=== PATIENT | male | born 1960 | race Hispanic/Latino ===

== ENCOUNTER 2019-09-11 12:14 | Inpatient (IN) | payer BC ==
[~2019-09-11] VITALS: Ht 180.3 cm; Wt 85.8 kg
[2019-09-11] MEDS: SODIUM CHLORIDE 0.9% 1000ML 1,000 ML IV SCH ×2 (02:15→17:03)
--- OUTSIDE RECORDS SUMMARY | 2019-09-11 12:17 | XMS REPORT ---
Author Author [facility] Address Unknown Phone Unavailable Care Team Providers Care Pecan Mallow Dipper Name Role Phone JONO TELLEZ Unavailable Unavailable Problems This patient has no known problems. Allergies, Adverse Reactions, Alerts This patient has no known allergies or adverse reactions. Medications This patient has no known medications. Results Test Description Test Time Test Comments Text Results Atomic Results Result Comments NV, ANGIOGRAM, CEREBRAL 2018-08-24 10:27:00 Reason for Exam:->tia FINAL REPORT DATE OF PROCEDURE: 08/20/2018 SURGEON: Ben Tellez MD MARKETING EXECUTIVE: Jose J Walsh MD PREOPERATIVE DIAGNOSIS: Intracranial artery stenosis POST OPERATIVE DIAGNOSIS: Intracranial artery stenosis PROCEDURE: Cerebral angiogram, 3D rotational angiogram ANESTHESIA: MAC ESTIMATED BLOOD LOSS: Minimal COMPLICATIONS: None INDICATIONS: The patient is a 58 year old male who was found to have stenoses of the left middle cerebral artery branches during a work-up for transient ischemic attacks. He was then indicated for a diagnostic cerebral angiogram to characterize these pathologies. PROCEDURE: Following explanation of the benefits, risks and alternatives for the procedure, informed consent was obtained from the patient. The risks including but not limited to stroke, intra cranial hemorrhage, vascular injury to the cervical or femoral vessels and groin hematoma were discussed with the patient. A time-out was performed. Both groins were prepped in the usual sterile fashion using Chloraprep, and sterilely draped. The skin over the right femoral artery was anesthetized with 1% lidocaine. A single wall puncture of the right femoral artery was performed using a micropuncture set and dilator and a 5-Fr short sheath was inserted into the right common femoral artery and maintained on heparinized flush. Using coaxial technique, a 5-Fr Angled glide catheter was advanced into the descending aorta, back-bled, and flushed in the usual fashion. Using coaxial technique, the catheter was advanced into the aortic arch, and with the aid of the roadmapping, digital fluoroscopy, and careful guidewire manipulation the right vertebral, right common carotid, left common carotid, and left vertebral arteries were catheterized. Upon each successive selective catheterization, digital subtract ion angiography using the appropriate rate and volume of contrast in multiple projections was performed. While in the right common carotid artery, a rotational 3D angiogram was performed with reconstruction and interpretation performed at an outside workstation by the attending physician Dr. Ben Tellez. The catheter was removed. The femoral sheath was removed over a wire and hemostasis was achieved with AngioSeal. The patient tolerated the procedure well and was taken to recovery in stable condition. FINDINGS: RIGHT COMMON FEMORAL ARTERY (DSA - PA, LATERAL - PELVIS) The sheath enters above the femoral bifurcation. The femoral artery and bifurcation are widely patent without evidence of ulceration or stenosis. RIGHT COMMON CAROTID ARTERY (DSA - PA, LATERAL - CERVICAL) There is mild stenosis of the right internal carotid artery near its origin by a non-ulcerated atherosclerotic plaque. The origins of the right external carotid artery is widely patent without evidence of ulceration or stenosis. RIGHT COMMON CAROTID ARTERY (DSA - PA, LATERAL, OBLIQUE - HEAD) There is a small size posterior communicating artery. There is robust spontaneous crossfilling across the anterior communicating artery with opacification of the distal left anterior cerebral artery territories. No vascular malformation or arteriovenous shunting is noted. No stenosis or vasospasm is observed. No significant abnormalities are seen in the capillary and venous phases. The visualized portions of the external carotid artery and its branches are normal without evidence of ulceration or stenosis. There is no evidence of arterioven ous shunting. RIGHT SUBCLAVIAN ARTERY (DSA - PA, LATERAL - CERVICAL) There is 67% stenosis of the right vertebral artery at its origin. RIGHT VERTEBRAL ARTERY (DSA - PA, LATERAL - HEAD) There is 90% stenosis of the basilar artery near the vertebrobasilar junction. There is backfilling of the left posterior inferior cerebellar artery via collaterals. The right vertebral artery is patent without significant stenotic lesion. No aneurysms or vascular malformations are noted in the vertebrobasilar system. The venous phase shows patent bilateral transverse and sigmoid sinuses. LEFT COMMON CAROTID ARTERY (DSA - PA, LATERAL - CERVICAL) The origins of the left internal and external carotid arteries are widely patent without evidence of ulceration or stenosis. LEFT COMMON CAROTID ARTERY (DSA - PA, LATERAL, OBLIQUE - HEAD) The stenoses of left M1 and M2 branches noted on prior CTA on 1/18/19 are not visualized on this injection. There is spontaneous crossfilling across the anterior communicating artery with trace opacification of the distal right anterior cerebral artery territories. There is a small size posterior communicating artery. No vascular malformations, stenosis, or vasospasm is observed. No significant abnormalities are seen in the capillary and venous phases. The venous phase demonstrates patent transverse and sigmoid sinuses. The visualized portions of the external carotid artery and its branches are normal without evidence of ulceration or stenosis. There is no evidence of arteriovenous shunting. The venous phase is normal. LEFT SUBCLAVIAN ARTERY (DSA - PA, LATERAL - CERVICAL) The left vertebral artery is greatly diminished in caliber and course. LEFT VERTEBRAL ARTERY (DSA - PA, LATERAL - HEAD) The left vertebral artery is narrow in caliber and diminished in course. There is no raissa ling of left posterior inferior cerebellar artery branches from this injection. SUPERVISION AND INTERPRETATION: Angiographic study demonstrates: 1. 90% stenosis of the proximal basilar artery 2. 67% stenosis of the right vertebral artery at its origin No immediate technical or clinical complications. Signed: Ben Tellez MDReport Verified Date/Time: 08/24/2018 10:27:15 Reading Location: [facility] Y026 Neuro Angio Reading Room C METABOLIC PANEL 2018-08-20 09:09:00 SODIUM (BEAKER) (test rbdc=903) 140 meq/L 136-145 POTASSIUM (BEAKER) (test xosg=098) 4.5 meq/L 3.5-5.1 CHLORIDE (BEAKER) (test fgmb=334) 106 meq/L 98-107 CO2 (BEAKER) (test ybgt=768) 27 meq/L 22-29 BLOOD UREA NITROGEN (BEAKER) (test uecq=951) 17 mg/dL 7-21 CREATININE (BEAKER) (test vcat=518) 0.97 mg/dL 0.57-1.25 GLUCOSE RANDOM (BEAKER) (test rjcu=911) 109 mg/dL 70-105 CALCIUM (BEAKER) (test wxsi=208) 9.5 mg/dL 8.4-10.2 EGFR (BEAKER) (test dmfn=4729) mL/min/1.73 sq m INSUFFICIENT CLINICAL DATA TO CALCULATE ESTIMATED GFR. PT/[id number] 08:59:00* Test Item Value Reference Range Comments PROTIME (BEAKER) (test krin=566) 13.1 seconds 11.7-14.7 INR (BEAKER) (test vzar=827) 1.0 <=5.9 PARTIAL THROMBOPLASTIN TIME (BEAKER) (test kvfc=838) 31.0 seconds 22.5-36.0 RECOMMENDED COUMADIN/WARFARIN INR THERAPY RANGESSTANDARD DOSE: 2.0 - 3.0 Inclu berto: PROPHYLAXIS for venous thrombosis, systemic embolization; TREATMENT for joi ous thrombosis and/or pulmonary embolus.HIGH RISK: Target INR is 2.5-3.5 for pat ients with mechanical heart valves.CBC W/PLT COUNT & AUTO [id number] 08:36:00* Test Item Value Reference Range Comments WHITE BLOOD CELL COUNT (BEAKER) (test pptv=757) 6.4 K/ L 3.5-10.5 RED BLOOD CELL COUNT (BEAKER) (test zevi=014) 4.71 M/ L 4.63-6.08 HEMOGLOBIN (BEAKER) (test nunw=580) 12.7 GM/DL 13.7-17.5 HEMATOCRIT (BEAKER) (test rtis=429) 39.8 % 40.1-51.0 MEAN CORPUSCULAR VOLUME (BEAKER) (test nvri=100) 84.5 fL 79.0-92.2 MEAN CORPUSCULAR HEMOGLOBIN (BEAKER) (test ovfr=974) 27.0 pg 25.7-32.2 MEAN CORPUSCULAR HEMOGLOBIN CONC (BEAKER) (test ypcv=592) 31.9 GM/DL 32.3-36.5 RED CELL DISTRIBUTION WIDTH (BEAKER) (test ccrf=767) 13.0 % 11.6-14.4 PLATELET COUNT (BEAKER) (test wzpz=482) 206 K/CU MM 150-450 MEAN PLATELET VOLUME (BEAKER) (test ddhe=269) 10.6 fL 9.4-12.4 NUCLEATED RED BLOOD CELLS (BEAKER) (test rjoy=935) 0 /100 WBC 0-0 NEUTROPHILS RELATIVE PERCENT (BEAKER) (test iznj=731) 66 % LYMPHOCYTES RELATIVE PERCENT (BEAKER) (test asub=288) 24 % MONOCYTES RELATIVE PERCENT (BEAKER) (test lrkp=121) 7 % EOSINOPHILS RELATIVE PERCENT (BEAKER) (test wamp=217) 2 % BASOPHILS RELATIVE PERCENT (BEAKER) (test wsio=654) 0 % NEUTROPHILS ABSOLUTE COUNT (BEAKER) (test qpcg=716) 4.27 K/ L 1.78-5.38 LYMPHOCYTES ABSOLUTE COUNT (BEAKER) (test moqv=174) 1.56 K/ L 1.32-3.57 MONOCYTES ABSOLUTE COUNT (BEAKER) (test xrbg=414) 0.45 K/ L 0.30-0.82 EOSINOPHILS ABSOLUTE COUNT (BEAKER) (test swki=085) 0.12 K/ L 0.04-0.54 BASOPHILS ABSOLUTE COUNT (BEAKER) (test hebo=311) 0.01 K/ L 0.01-0.08 IMMATURE GRANULOCYTES-RELATIVE PERCENT (BEAKER) (test bcth=5915) 0 % 0-1
[2019-09-11] MEDS ORDERED: SODIUM CHLORIDE 0.9% 1000ML 1,000 ML IV STA (13:03)
[2019-09-11 13:15] LABS: BASOPHILS % 0.2 % (0.0-1.0); HEMATOCRIT 34.3 % (38.2-49.6); LYMPHOCYTES # (AUTO) 0.3 (1.0-3.2); LYMPHOCYTES % 2.5 % (18.0-39.1); MEAN CORPUSCULAR HEMOGLOBIN 20.6 pg (28-32); MEAN CORPUSCULAR HGB CONC 29.2 g/dL (31-35); MEAN CORPUSCULAR VOLUME 70.6 fL (81-99); MONOCYTES # (AUTO) 0.5 (0.2-0.8); MONOCYTES % 3.9 % (4.4-11.3); NEUTROPHILS # (AUTO) 12.2 (2.1-6.9); NEUTROPHILS % 92.9 % (38.7-80.0); PLATELET COUNT 323 x10e3/uL (140-360); RED BLOOD COUNT 4.86 x10e6/uL (4.3-5.7); RED CELL DISTRIBUTION WIDTH 17.9 % (11.7-14.4)
[2019-09-11] MEDS ORDERED: KETOROLAC TROMETHAMINE 30 MG/ML VIAL IV NR (13:15)
[2019-09-11] MEDS ORDERED: ONDANSETRON HCL INJ 2MG/ML 2ML 2 MG/ML VIAL IV NR (13:15)
[2019-09-11 13:19] LABS: INR 1.01; PROTHROMBIN TIME 13.9 seconds (11.9-14.5)
[2019-09-11 13:20] LABS: PARTIAL THROMBOPLASTIN TIME 25.3 seconds (23.8-35.5)
[2019-09-11 13:27] LABS: ALANINE AMINOTRANSFERASE 26 IU/L (0-55); ALBUMIN 3.5 g/dL (3.5-5.0); ALBUMIN/GLOBULIN RATIO 1.2 (0.8-2.0); ALKALINE PHOSPHATASE 126 IU/L (40-150); ANION GAP 12.1 mmol/L (8-16); BLOOD UREA NITROGEN 19 mg/dL (7-26); BUN/CREATININE RATIO 19 (6-25); CALCIUM 8.8 mg/dL (8.4-10.2); CARBON DIOXIDE 23 mmol/L (22-29); CHLORIDE 103 mmol/L (98-107); CREATINE KINASE 54 IU/L (30-200); EST GLOMERULAR FILTRATION RATE > 60 ML/MIN (60-); GLUCOSE 145 mg/dL (74-118); LIPASE 9 U/L (8-78); POTASSIUM 4.1 mmol/L (3.5-5.1); SODIUM 134 mmol/L (136-145)
--- NOTE | 2019-09-11 14:24 | Diagnostic Imaging Report ---
EXAMINATION: CHEST SINGLE (PORTABLE) COMPARISON: None INDICATION: Right side abdominal pain ^ERMD ORDER ^[id number] ^1405 ^Y DISCUSSION: Frontal view of the chest obtained at 1356 hours. HEART AND MEDIASTINUM: The cardiomediastinal silhouette is unremarkable. LINES: None. LUNGS: The lungs are well inflated and clear. No pneumonia or pulmonary edema. PLEURA: No pleural effusion or pneumothorax. BONES AND SOFT TISSUES: No focal osseous lesion. The soft tissues are normal. IMPRESSION: No acute cardiopulmonary disease. Signed by: Dr. Flor Carr MD on 09/11/2019 2:22 PM
--- NOTE | 2019-09-11 14:33 | Diagnostic Imaging Report ---
CT Abdomen And Pelvis with Intravenous Contrast INDICATION: Right lower quadrant pain ^abd pain ^[id number] ^1400 TECHNIQUE: Thin collimation axial images obtained from the diaphragm to the level of the pubic symphysis following the uneventful administration of 100 cc of low osmolar, nonionic intravenous contrast. Dose reduction techniques used: Automated exposure control, adjustment of the mAs and/or kVp according to patient size, standardized low-dose protocol, and/or iterative reconstruction technique. RADIATION DOSE: Total DLP: 511.68 mGy*cm Estimated effective dose: (DLP x 0.015 x size factor) mSv CTDIvol has been reviewed. It is below the limits set by the Radiation Protocol Committee (RPC). COMPARISON: None. ABDOMEN FINDINGS: Lung Bases: Clear. The visualized portions of the mediastinum are normal.. Liver: Multiple solid low attenuating masses throughout the parenchyma, the largest is in the right lobe and measures 4.5 x 4.3 cm. Gallbladder: Present and appears normal. No biliary ductal dilatation. Pancreas: Mild fatty atrophy. No mass or ductal dilatation. Spleen: Normal in size. No evidence of mass. Adrenal Glands: No evidence for mass. Kidneys: Right: Normal enhancement. No soft tissue mass. No hydronephrosis. Left: Normal enhancement. No soft tissue mass. No hydronephrosis. Lymph Nodes: No enlarged abdominal or periaortic lymph nodes. Aorta: Normal in diameter with scattered calcifications PELVIS FINDINGS: Bowel: Stomach: Normal. Small Bowel: Normal in caliber with normal wall thickness. Large Bowel/appendix: Circumferential tumor in the cecal base extends for approximately 5.5 cm. This obscures the appendiceal orifice. As result, the appendix measures 2.4 cm in diameter with periappendiceal inflammation. The terminal ileum is not dilated. There are multiple enlarged pericecal lymph nodes, that measure up to 2.5 cm. The remainder of the large bowel contains air. There are diverticula in the sigmoid colon with mural thickening suggestive of previous bouts of diverticulitis. Bladder: Normal. Lymph nodes: No enlarged pelvic sidewall or internal lymph nodes Peritoneum/retroperitoneum: Small amount of perihepatic and pelvic ascites. Diffuse right lower quadrant edema. No free air. Bones: Degenerative changes of the mid lumbar spine with grade 1 retrolisthesis of L3 on L4 and L4 on L5. No pars defects. Soft tissues: Unremarkable. IMPRESSION: 1. 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 2. Metastatic pericecal lymphadenopathy and intrahepatic metastases as described above. 3. Diverticulosis coli. No evidence of acute diverticulitis. No bowel obstruction. Signed by: Dr. Flor Carr MD on 09/11/2019 2:31 PM
[2019-09-11] MEDS ORDERED: MORPHINE SULFATE 5 MG/ML VIAL IV NR (14:45)
[2019-09-11] MEDS ORDERED: MORPHINE SULFATE INJ 4 MG/ML INJ 1ML IV NR (15:00)
[2019-09-11] MEDS ORDERED: PIPER-TAZ 3.375 GM 50 ML IV ONE (15:30)
[2019-09-11 15:38] LABS: CLARITY,URINE SL CLOUDY (CLEAR); COLOR,URINE YELLOW (YELLOW); LEUKOCYTE ESTERASE ,URINE NEGATIVE (NEGATIVE); NITRITE,URINE NEGATIVE (NEGATIVE)
[2019-09-11 15:39] LABS: BILIRUBIN,URINE NEGATIVE (NEGATIVE); KETONES,URINE 1+ (NEGATIVE); PROTEIN,URINE DIPSTICK NEGATIVE (NEGATIVE); URINE UROBILINOGEN 0.2 mg/dL (0.2 - 1)
[2019-09-11 15:49] LABS: BACTERIA,URINE RARE /HPF; EPITHELIAL CELLS,URINE FEW /LPF; WBC,URINE (MAN) 0-5 /HPF (0-5)
[2019-09-11] MEDS ORDERED: HYDRALAZINE HCL 20 MG/ML VIAL IV PRN (17:00)
[2019-09-11] MEDS: FAMOTIDINE 20 MG/2 ML VIAL IV SCH (17:00)
--- NOTE | 2019-09-11 17:21 | NUR ---
RCD PT FROM ER BY WHEEL CHAIR PT IS ALERT AND ORIENTED VITALS CHECKED PT RESTING ON BED ADMISSION ASSESSMENT AND HISTORY AND FAMILY HISTORY DONE IV PATENT BY SALINE FLUSH AND RECNNECTED THE BAG NS 125 ML /HR FAMILY AT BED SIDE INSTRUCTED THE PT AND FAMILY REGARDING HOSPITAL POLICY AND ROUTINE BED LOW AND LOCKED CALL LIGHT IN REACH
--- NOTE | 2019-09-11 17:30 | NUR ---
FEVER 101.1 NOTIFIED DEV CURTAIN STRETCHER GOT NEW ORDERS
[2019-09-11 17:36] VITALS: BP 124/76
[2019-09-11] MEDS ORDERED: SODIUM CHLORIDE 0.9% 50ML 50 ML ONE (17:44)
[2019-09-11] MEDS ORDERED: IOPAMIDOL 370 MG/ML 200 ML INFUS..BTL INJ ONE (17:44)
[2019-09-11] MEDS ORDERED: ACETAMINOPHEN 1000 MG/100 ML IV NR (18:00)
--- NOTE | 2019-09-11 18:07 | NUR ---
AC TO PT AND FAMILY PAGED AND TALKED DR MCKEON ABOUT THE PLAN HE SAID HE COMING TO SEE THE PT
--- NOTE | 2019-09-11 18:10 | NUR ---
PAGED AND NOTIFIED CONSULTATION TO DR RATLIFF HE SAID HE IS COMING ON TOMORROW
[2019-09-11 18:31] VITALS: BP 124/76
--- NOTE | 2019-09-11 19:05 | NUR ---
PT RESTING ON BED BED SIDE REPORT GIVEN TO ONCOMING NURSE
[2019-09-11 19:25] VITALS: BP 124/76
[2019-09-11] MEDS: ACETAMINOPHEN 325 MG TAB PO PRN (19:52)
[2019-09-11 20:00] VITALS: BP 136/68
--- NOTE | 2019-09-11 20:40 | NUR ---
OBTAINED CONSENT FORM FOR RIGHT COLECTOMY. NOTIFIED TELEVISION TECHNICIAN ABOUT THE PROCEDURE.
[2019-09-11] MEDS: ONDANSETRON HCL INJ 2MG/ML 2ML 2 MG/ML VIAL IV PRN (20:51)
[2019-09-11] MEDS: MORPHINE SULFATE 2 MG/ML SYR 1ML IV PRN (20:51)
[2019-09-11] MEDS: PIPER-TAZ 3.375 GM 50 ML IV SCH (21:29)
[2019-09-11 21:31] VITALS: BP 136/68
[2019-09-12] VITALS (7 sets, daily range): BP systolic 95–121; BP diastolic 59–74
--- NOTE | 2019-09-12 00:20 | NUR ---
DR FUNEZ MADE ROUND.
--- NOTE | 2019-09-12 00:37 | Consultation ---
DATE OF CONSULTATION: 09/11/2019 CHIEF COMPLAINT: Abdominal pain. HISTORY OF PRESENT ILLNESS: The patient is a 59-year-old male with 1-day history of pain in the right lower quadrant with nausea, no vomiting. He had bowel movement. He had fevers and chills. PAST MEDICAL HISTORY: Positive for diabetes and TIAs. PAST SURGICAL HISTORY: Positive for shoulder surgery. ALLERGIES: HE HAS NO DRUG ALLERGIES. SOCIAL HABITS: He denies smoking or alcohol use. REVIEW OF SYSTEMS: No chest pain or shortness of breath. He reports normal angiogram as well as colonoscopy recently. PHYSICAL EXAMINATION: VITAL SIGNS: Stable. T-max 101. GENERAL: He is awake, alert, in moderate discomfort. HEENT: Sclerae anicteric. NECK: Supple. LUNGS: Clear. HEART: Regular rate and rhythm. ABDOMEN: Soft with guarding tenderness in right lower quadrant with a mass, fullness in the area. EXTREMITIES: No cyanosis or edema. LABORATORY DATA: White cell count is 13, hemoglobin of 10, creatinine of 1.0. CT scan show a cecal tumor obstructing the appendiceal orifice with possible liver mets. ASSESSMENT: Appendicitis associated with a cecal mass, possible metastatic disease to the liver. PLAN: Right colectomy. Attendant risks discussed. Eliazar David MD DNCarlos/MODL /[id number]
[2019-09-12] MEDS: ONDANSETRON HCL INJ 2MG/ML 2ML 2 MG/ML VIAL IV PRN (00:53)
[2019-09-12] MEDS: MORPHINE SULFATE 2 MG/ML SYR 1ML IV PRN (00:53)
--- NOTE | 2019-09-12 02:30 | NUR ---
FAMILY PROVIDED COLONOSCOPY RESULT. NOTIFIED DR FUNEZ. DR FUNEZ READ THE RESULT.
[2019-09-12] MEDS: SODIUM CHLORIDE 0.9% 1000ML 1,000 ML IV SCH ×3 (04:10→21:38)
[2019-09-12] MEDS: PIPER-TAZ 3.375 GM 50 ML IV SCH ×3 (05:24→20:46)
--- NOTE | 2019-09-12 05:41 | NUR ---
DR MCKEON RESCHEDULE SURGERY TO 10AM
--- NOTE | 2019-09-12 06:05 | Diagnostic Imaging Report ---
Examination: Single AP view of the chest. COMPARISON: 09/11/2019 INDICATION: Surgery DISCUSSION: Lung volumes are low with vascular crowding in the lung bases. Suspect 1.7 cm nodule in the right perihilar region. No pneumothorax. Cardiomediastinal contour and pulmonary vasculature are within normal limits when accounting for AP technique and degree of inspiratory effort. No acute osseous abnormalities. IMPRESSION: Low lung volumes with vascular crowding/subsegmental atelectasis in the lung bases. A 1.7 cm right perihilar pulmonary nodule is suspected. CT scan of the chest with contrast is suggested for further evaluation when clinically feasible given findings on abdominal/pelvic CT 09/11/2019. Signed by: Dr. Eliazar Farias M.D. on 09/12/2019 6:03 AM
[2019-09-12 06:19] LABS: BASOPHILS % 0.1 % (0.0-1.0); HEMATOCRIT 30.2 % (38.2-49.6); HEMOGLOBIN 8.8 g/dL (14.0-18.0); LYMPHOCYTES # (AUTO) 0.5 (1.0-3.2); LYMPHOCYTES % 2.7 % (18.0-39.1); MEAN CORPUSCULAR HEMOGLOBIN 20.5 pg (28-32); MEAN CORPUSCULAR HGB CONC 29.1 g/dL (31-35); MEAN CORPUSCULAR VOLUME 70.2 fL (81-99); MONOCYTES # (AUTO) 0.4 (0.2-0.8); MONOCYTES % 2.2 % (4.4-11.3); NEUTROPHILS # (AUTO) 16.9 (2.1-6.9); NEUTROPHILS % 94.4 % (38.7-80.0); PLATELET COUNT 262 x10e3/uL (140-360); RED CELL DISTRIBUTION WIDTH 17.6 % (11.7-14.4)
[2019-09-12 06:42] LABS: ALANINE AMINOTRANSFERASE 20 IU/L (0-55); ALBUMIN 2.9 g/dL (3.5-5.0); ALKALINE PHOSPHATASE 90 IU/L (40-150); ANION GAP 11.9 mmol/L (8-16); BLOOD UREA NITROGEN 22 mg/dL (7-26); BUN/CREATININE RATIO 22 (6-25); CALCIUM 8.6 mg/dL (8.4-10.2); CARBON DIOXIDE 22 mmol/L (22-29); CHLORIDE 107 mmol/L (98-107); CREATININE, SERUM 0.99 mg/dL (0.72-1.25); EST GLOMERULAR FILTRATION RATE > 60 ML/MIN (60-); GLUCOSE 119 mg/dL (74-118); MAGNESIUM 1.4 MG/DL (1.3-2.1); PHOSPHORUS 3.1 MG/DL (2.3-4.7); POTASSIUM 3.9 mmol/L (3.5-5.1); SODIUM 137 mmol/L (136-145)
[2019-09-12 06:59] LABS: INR 1.31; PROTHROMBIN TIME 17.2 seconds (11.9-14.5)
[2019-09-12 07:00] LABS: PARTIAL THROMBOPLASTIN TIME 37.3 seconds (23.8-35.5)
--- NOTE | 2019-09-12 07:00 | NUR ---
BEDSIDE SHIFT REPORT FROM FINANCIAL MARKET DEALER RN. PT DENIES NEEDS AT THIS TIME.
[2019-09-12 07:05] LABS: THYROID STIMULATING HORMONE 0.431 uIU/mL (0.350-4.940)
[2019-09-12] MEDS: FAMOTIDINE 20 MG/2 ML VIAL IV SCH ×2 (08:27→16:21)
--- NOTE | 2019-09-12 09:50 | NUR ---
PT OFF THE FLOOR TO OR.
[2019-09-12] MEDS ORDERED: DEXTROSE 50% SYRINGE 50 ML IV PRN (10:00)
[2019-09-12] MEDS ORDERED: DEXAMETHASONE PHOS 10MG INJ 20 MG in SODIUM CHLORIDE 0.9% 50ML 50 ML IV NR ×3 (11:30→15:15)
[2019-09-12] MEDS ORDERED: DIPHENHYDRAMINE HCL INJ 25 MG in SODIUM CHLORIDE 0.9% 50ML 50 ML IV NR ×2 (11:30→15:00)
[2019-09-12] MEDS ORDERED: FAMOTIDINE INJ 20 MG in SODIUM CHLORIDE 0.9% 50ML 50 ML IV NR ×2 (11:30→15:15)
[2019-09-12] MEDS: INSULIN LISPRO 100 UNIT/1 ML 3ML VIAL SQ SCH ×3 (11:30→20:46)
[2019-09-12] MEDS ORDERED: IRON DEXTRAN INJ 50 MG in SODIUM CHLORIDE 0.9% 100 ML IV ONE (12:30)
[2019-09-12] MEDS ORDERED: IRON DEXTRAN INJ 500 MG in SODIUM CHLORIDE 0.9% 500ML 500 ML IV PRN (13:00)
[2019-09-12] MEDS: SODIUM CHLORIDE 0.9% 250ML IRRIG IR SCH ×3 (13:15→20:46)
--- NOTE | 2019-09-12 13:30 | NUR ---
DR GOMEZ TO SEE PT NEW ORDERS RECEIVED.
[2019-09-12] MEDS ORDERED: FENTANYL CITRATE/PF 100MCG/2 ML INJ ONE ×2 (13:39→17:31)
--- NOTE | 2019-09-12 15:05 | NUR ---
PT RECEIVED FROM PACU VIA BED. NG TUBE TO LT NARE TO LCS, IV IN RAC CONTINUOS FLUIDS INFUSING. BONE TO BSD LT PINK IN COLOR. SCD IN PLACE. COTY CD&I TO MIDLINE ABD
--- NOTE | 2019-09-12 17:00 | NUR ---
PT STILL WITHOUT PAIN AT THIS TIME. IRON TRIAL IS INFUSING PT AND MADE AWARE
[2019-09-12] MEDS ORDERED: ROCURONIUM BROMIDE 10 MG/ML 5ML VIAL ONE (17:14)
[2019-09-12] MEDS ORDERED: SEVOFLURANE INHAL SOLN 250 ML PEN BTL ONE (17:14)
[2019-09-12] MEDS ORDERED: SUCCINYLCHOLINE CHLORIDE 20 MG/ML 10ML VIAL ONE (17:14)
[2019-09-12] MEDS ORDERED: DEXAMETHASONE SOD PHOS INJ 4 MG/ML VIAL ONE (17:14)
[2019-09-12] MEDS ORDERED: LIDOCAINE HCL 2% LOCAL INJ 5 ML SDV VIAL INJ ONE (17:14)
[2019-09-12] MEDS ORDERED: CEFOXITIN SOD 1 GM VIAL ONE (17:14)
[2019-09-12] MEDS ORDERED: ATROPINE SULFATE 1 MG/ML VIAL ONE (17:14)
[2019-09-12] MEDS ORDERED: NEOSTIGMINE 1 MG/ML 10ML VIAL ONE (17:14)
[2019-09-12] MEDS ORDERED: KETOROLAC TROMETHAMINE 30 MG/ML VIAL ONE (17:14)
[2019-09-12] MEDS ORDERED: PROPOFOL IV EMULSION 10 MG/ML 20 ML VIAL ONE (17:14)
[2019-09-12] MEDS ORDERED: ONDANSETRON HCL INJ 2MG/ML 2ML 2 MG/ML VIAL ONE (17:14)
--- NOTE | 2019-09-12 17:21 | NUR ---
CALL PLACE TO DR WILKS WITH FAMILY CONCERNS
[2019-09-12] MEDS ORDERED: MIDAZOLAM HCL 2 MG/2 ML VIAL ONE (17:31)
--- NOTE | 2019-09-12 19:05 | NUR ---
REPORT GIVEN TO ON COMING SHIFT. NO CHANGES AT THIS TIME. NO C/O CP Addendum: 09/12/19 at 1931 by Mary Moncada RN PLEASE IGNORE LAST NOTE
--- NOTE | 2019-09-12 19:05 | NUR ---
REPORT GIVEN TO ON COMING NURSE. NO CHANGE AT THIS TIME IN PT STATUS
--- NOTE | 2019-09-12 19:06 | NUR ---
WALKING ROUNDS PERFORMED, RECEIVED PT LAYING SEMI FOWLERS IN BED, AAOX3, RR EVEN AND NON-LABORED, ON ROOM AIR. NGT TO SUCTION. MICHAEL DRAIN NOTED TO (R) LOWER ANTERIOR ABD, DRESSING CDI. DRESSING TO INCISION IS CDI. LEFT PT LAYING SEMI FOWLERS IN BED, BED IN LOW LOCKED POSITION, SIDE RAILS UPX2, CALL LIGHT AND PHONE WITHIN REACH.
[2019-09-12] MEDS: ATORVASTATIN 20 MG TAB PO SCH (19:19)
[2019-09-12 19:37] LABS: BASOPHILS % 0.1 % (0.0-1.0); HEMATOCRIT 30.5 % (38.2-49.6); LYMPHOCYTES # (AUTO) 0.4 (1.0-3.2); LYMPHOCYTES % 2.6 % (18.0-39.1); MEAN CORPUSCULAR HEMOGLOBIN 20.7 pg (28-32); MEAN CORPUSCULAR HGB CONC 29.5 g/dL (31-35); MEAN CORPUSCULAR VOLUME 70.3 fL (81-99); MONOCYTES # (AUTO) 0.3 (0.2-0.8); MONOCYTES % 1.6 % (4.4-11.3); NEUTROPHILS # (AUTO) 15.3 (2.1-6.9); NEUTROPHILS % 95.1 % (38.7-80.0); PLATELET COUNT 246 x10e3/uL (140-360); RED BLOOD COUNT 4.34 x10e6/uL (4.3-5.7); RED CELL DISTRIBUTION WIDTH 17.7 % (11.7-14.4)
--- NOTE | 2019-09-12 19:40 | Operative Report ---
DATE OF PROCEDURE: 09/12/2019 SURGEON: Eliazar David MD PREOPERATIVE DIAGNOSIS: Cecal mass with appendicitis. POSTOPERATIVE DIAGNOSIS: Cecal mass with appendicitis. PROCEDURE: Right colectomy. ANESTHESIA: General, Dr. Moreno. INDICATION: A 59-year-old male with history of abdominal pain and CT scan showed evidence of appendicitis associated with a cecal mass and possible liver mets. The patient consented for open right colectomy. Attendant risks discussed. PROCEDURE FINDING: Large cecal tumor adherent to the retroperitoneum with adjacent appendicitis with possible microperforation and multiple small liver mets. DESCRIPTION OF PROCEDURE: The patient was brought to OR intubated. The abdomen was prepped and draped in sterile fashion. An upper midline incision was made extending down to below the umbilicus going through the linea alba, entering the peritoneal cavity. Purulent exudative peritoneal fluid was encountered and suctioned out. Approximately 400 mL removed by expression and carried out a large cecal mass, which was adherent to the retroperitoneum was encountered with partial kink of the terminal ileum from adhesions. We proceeded to mobilize the right colon dividing the white line of Toldt starting at the hepatic flexure, working down towards the cecum, which was mobilized from the retroperitoneal attachment with sharp dissection. The right ureter was identified, as we mobilized the right colon medially and right ureter was preserved. We then proceeded to divide the right colon at the proximal transverse colon with the SHERMAN stapler and the corresponding mesentery to the right colon was controlled with clamps and suture ligature using #0 silk. The terminal ileum was transected 10 cm from the ileocecal valve and using LigaSure. Its mesentery was also controlled and hemostasis achieved. Specimen delivered off the field. Irrigation was carried out. Hemostasis was achieved. We then performed a stapled [id number] anastomosis between the ileum and the transverse colon using a SHERMAN stapler and a TX-60 instrument. The mesentery defect was closed with interrupted 3-0 silk stitches. Operative field was then irrigated with copious saline solution. A 19-Bahamian Royer drain was placed in the right paracolic gutter and taken out through a separate stab wound incision in right lower quadrant. The omentum was draped over the bowel as we closed the abdomen with a running #1 PDS. Skin was closed with davina. The patient was extubated and transported to recovery room. BLOOD LOSS: 50 mL. MD GINA Downey/DALLIN /[id number]
[2019-09-12 20:51] LABS: BAND NEUTROPHILS % (MANUAL) 39 %; EOSINOPHILS % (MANUAL) 2 % (0-7); LYMPHOCYTES % (MANUAL) 1 % (19-48); MONOCYTES % (MANUAL) 2 % (3.4-9.0); NEUTROPHILS % (MANUAL) 56 % (40-74)
[2019-09-12 20:52] LABS: HYPOCHROMASIA SLIGHT; PLATELET ESTIMATE ADEQUATE; PLATELET MORPHOLOGY COMMENT NORMAL; POIKILOCYTOSIS SLIGHT
--- NOTE | 2019-09-12 22:00 | NUR ---
ASSISTED PT TO STANDING POSITION AND TRANSFER TO HARD BACK CHAIR. LEFT PT SITTING IN CHAIR WITH CALL LIGHT WITHIN REACH.
--- NOTE | 2019-09-12 22:30 | NUR ---
PT REQUESTING TO RETURN TO BED. PT ASSISTED TO TRANSFER TO BED. LEFT PT LAYING SEMI FOWLERS IN BED, BED IN LOW LOCKED POSITION, SIDE RAILS UPX2, CALL LIGHT AND PHONE WITHIN REACH.
[2019-09-13] VITALS (9 sets, daily range): BP systolic 125–149; BP diastolic 68–81
[2019-09-13] MEDS: SODIUM CHLORIDE 0.9% 250ML IRRIG IR SCH ×3 (01:43→09:15)
[2019-09-13 03:45] LABS: BASOPHILS % 0.1 % (0.0-1.0); HEMATOCRIT 27.7 % (38.2-49.6); HEMOGLOBIN 8.2 g/dL (14.0-18.0); LYMPHOCYTES # (AUTO) 0.5 (1.0-3.2); LYMPHOCYTES % 2.9 % (18.0-39.1); MEAN CORPUSCULAR HEMOGLOBIN 20.6 pg (28-32); MEAN CORPUSCULAR HGB CONC 29.6 g/dL (31-35); MEAN CORPUSCULAR VOLUME 69.6 fL (81-99); MONOCYTES # (AUTO) 0.6 (0.2-0.8); MONOCYTES % 3.7 % (4.4-11.3); NEUTROPHILS # (AUTO) 14.6 (2.1-6.9); NEUTROPHILS % 92.2 % (38.7-80.0); PLATELET COUNT 265 x10e3/uL (140-360); RED BLOOD COUNT 3.98 x10e6/uL (4.3-5.7); RED CELL DISTRIBUTION WIDTH 17.7 % (11.7-14.4)
[2019-09-13 04:06] LABS: ALANINE AMINOTRANSFERASE 18 IU/L (0-55); ALBUMIN 2.4 g/dL (3.5-5.0); ALBUMIN/GLOBULIN RATIO 0.8 (0.8-2.0); ALKALINE PHOSPHATASE 69 IU/L (40-150); ANION GAP 9.8 mmol/L (8-16); BLOOD UREA NITROGEN 24 mg/dL (7-26); BUN/CREATININE RATIO 27 (6-25); CALCIUM 8.5 mg/dL (8.4-10.2); CARBON DIOXIDE 24 mmol/L (22-29); CHLORIDE 109 mmol/L (98-107); CREATININE, SERUM 0.89 mg/dL (0.72-1.25); EST GLOMERULAR FILTRATION RATE > 60 ML/MIN (60-); GLUCOSE 147 mg/dL (74-118); MAGNESIUM 1.8 MG/DL (1.3-2.1); POTASSIUM 3.8 mmol/L (3.5-5.1); SODIUM 139 mmol/L (136-145)
[2019-09-13] MEDS: SODIUM CHLORIDE 0.9% 1000ML 1,000 ML IV SCH ×4 (06:09→17:38)
[2019-09-13] MEDS: PIPER-TAZ 3.375 GM 50 ML IV SCH ×3 (06:10→22:32)
--- NOTE | 2019-09-13 06:55 | NUR ---
Received patient lying in bed with eyes open. Left nare NG tube, in placed, intact, attached to low intermittent suction. Indwelling hyatt catheter in placed, intact, draining yellow-colored urine to bag. Family at bedside. Call light in reach.
[2019-09-13 07:20] LABS: EOSINOPHILS % (MANUAL) 1 % (0-7); LYMPHOCYTES % (MANUAL) 4 % (19-48); MONOCYTES % (MANUAL) 5 % (3.4-9.0); NEUTROPHILS % (MANUAL) 90 % (40-74); PLATELET ESTIMATE ADEQUATE; PLATELET MORPHOLOGY COMMENT NORMAL; RBC MORPHOLOGY COMMENT NORMAL
[2019-09-13] MEDS: INSULIN LISPRO 100 UNIT/1 ML 3ML VIAL SQ SCH ×4 (07:30→21:00)
[2019-09-13] MEDS ORDERED: MORPHINE SULFATE INJ 4 MG/ML INJ 1ML IV PRN (09:00)
[2019-09-13] MEDS ORDERED: CLOPIDOGREL BISULFATE 75 MG TAB PO SCH (09:00)
[2019-09-13] MEDS: ASPIRIN 81 MG CHEW TAB PO SCH (10:35)
[2019-09-13] MEDS: FAMOTIDINE 20 MG/2 ML VIAL IV SCH ×2 (10:35→18:39)
--- NOTE | 2019-09-13 10:35 | NUR ---
Left nare NG tube removed per ordered. Catheter tip intact. Denies pain. Respiration even and unlabored without SOB.
--- NOTE | 2019-09-13 15:25 | Consultation ---
DATE OF CONSULTATION: 09/12/2019 HISTORY OF PRESENT ILLNESS: Mr. Silva is a 59-year-old male, who has been referred to me for evaluation of colon cancer. The patient had presented with abdominal pain. I had come to see him at 11 o'clock. However, the patient was in surgery, so I came back at 2 o'clock and saw the patient, spoke to the as well as the [id number]. The patient's claimed that he had two colonoscopies, which were reported essentially negative. He could not tell me where the colonoscopies and when the colonoscopies were done. The patient had presented with abdominal pain. Possibility of appendicitis was raised. The patient had a CT scan of the abdomen, which showed multiple lesions in the liver, the largest being 4.5 x 4. The gallbladder was essentially normal. Adrenals were reported essentially normal. The kidneys reported essentially normal. However, there was a circumferential tumor in the cecal base extending approximately 5.5 cm. The appendix measured 2.4 cm with periappendiceal inflammation. There were multiple enlarged pericecal lymph nodes, most of them measure 2.5 cm. There were diverticula in the sigmoid colon with mural thickening. Peritoneum showed small amount of perihepatic and pelvic ascites. Bone showed degenerative changes in L3-L4, L4-L5. Subsequently, the patient underwent surgery. SOCIAL HISTORY: Noncontributory. FAMILY HISTORY: Noncontributory. ALLERGIES: REPORTED NONE. MEDICATIONS: At this time: 1. Zosyn. 2. Sodium chloride. 3. Morphine. 4. Dextrose. 5. Insulin. 6. Atorvastatin. 7. Aspirin. 8. Plavix. REVIEW OF SYSTEMS: HEENT: The patient has had a TIA for which he was given Plavix. CARDIAC: History of hypertension, hyperlipidemia. RESPIRATORY: To be determined. GI: Colon cancer with massive liver metastases. : Normal. MUSCULOSKELETAL: Normal. SKIN AND BREASTS: Normal. NEUROENDOCRINE: Essentially normal. PHYSICAL EXAMINATION: GENERAL: A moderately built male, very anemic, no palpable adenopathy. HEART: Within normal limits. LUNGS: Clear. ABDOMEN: Scars of surgery were seen. RECTAL: Could not be done. CENTRAL NERVOUS SYSTEM: Essentially normal. LABORATORY DATA: Sodium 134, potassium 4.1, chloride is 103, CO2 23, BUN 19, creatinine 1.08, glucose 145, calcium 8.8, bilirubin 1.1, SGOT 38, SGPT 26, alkaline phosphatase 126, total protein 6.5, albumin 3.5, globulin is 3.0. Hematology; hemoglobin of 10.0, hematocrit of 34.3, white count of 13,160, platelets of 323,000, MCV low at 70.6, MCHC low at 29.2, RDW high at 17.9. IMAGING DATA: I had described that in detail. IMPRESSION: 1. Cancer of the cecum. 2. Appendicitis. 3. Pericecal lymphadenopathy. 4. Liver metastases. 5. Diverticulosis coli. 6. Iron deficiency anemia. 7. Hypoproteinemia. 8. Hypoalbuminemia. 9. History of transient ischemic attack. 10. History of hypertension. 11. History of hyperlipidemia. 12. Diabetes mellitus. PLAN, COMMENTS AND SUGGESTIONS: Suggest CEA, suggest KRAS mutation, suggest INFeD, postoperative chemotherapy for an incurable disease. Off Plavix for at least four days. I will confine myself to Hematology/Oncology. I have had a long discussion with the patient's and [id number], who suffers from multiple myeloma. Incurability was discussed. I will have a discussion with the patient's family. I will have a discussion with the patient when psychologically he is available. I have given the family a copy of the CT scan, highlighting the metastatic disease in yellow. The patient works at [employer], 99% that he will go there for an incurable disease. Tammy Rehman MD MAQ/MODL /[id number] cc: MD Alec Downey MD Maurice S Haddad, MD
--- NOTE | 2019-09-13 19:10 | NUR ---
Report given to material handler 2nd shift. Family member at bedside. Respiration even and unlabored without SOB. Call light in reach.
[2019-09-13] MEDS: ATORVASTATIN 20 MG TAB PO SCH (21:45)
[2019-09-13] MEDS: HYDROCODONE/APAP 10MG-325MG TAB PO PRN (22:38)
[2019-09-14] VITALS (7 sets, daily range): BP systolic 138–149; BP diastolic 72–82
[2019-09-14] MEDS: SODIUM CHLORIDE 0.9% 1000ML 1,000 ML IV SCH ×4 (00:18→20:18)
[2019-09-14 05:40] LABS: BASOPHILS % 0.1 % (0.0-1.0); HEMATOCRIT 30.7 % (38.2-49.6); HEMOGLOBIN 8.7 g/dL (14.0-18.0); LYMPHOCYTES # (AUTO) 1.1 (1.0-3.2); LYMPHOCYTES % 6.2 % (18.0-39.1); MEAN CORPUSCULAR HEMOGLOBIN 20.1 pg (28-32); MEAN CORPUSCULAR HGB CONC 28.3 g/dL (31-35); MEAN CORPUSCULAR VOLUME 70.9 fL (81-99); MONOCYTES # (AUTO) 0.8 (0.2-0.8); MONOCYTES % 4.2 % (4.4-11.3); NEUTROPHILS # (AUTO) 15.8 (2.1-6.9); NEUTROPHILS % 88.7 % (38.7-80.0); PLATELET COUNT 300 x10e3/uL (140-360); RED BLOOD COUNT 4.33 x10e6/uL (4.3-5.7); RED CELL DISTRIBUTION WIDTH 17.8 % (11.7-14.4)
[2019-09-14 06:05] LABS: ANION GAP 10.2 mmol/L (8-16); BLOOD UREA NITROGEN 22 mg/dL (7-26); BUN/CREATININE RATIO 27 (6-25); CALCIUM 8.3 mg/dL (8.4-10.2); CARBON DIOXIDE 24 mmol/L (22-29); CHLORIDE 110 mmol/L (98-107); CREATININE, SERUM 0.82 mg/dL (0.72-1.25); EST GLOMERULAR FILTRATION RATE > 60 ML/MIN (60-); GLUCOSE 114 mg/dL (74-118); POTASSIUM 4.2 mmol/L (3.5-5.1); SODIUM 140 mmol/L (136-145)
[2019-09-14] MEDS: PIPER-TAZ 3.375 GM 50 ML IV SCH ×3 (06:12→21:39)
--- NOTE | 2019-09-14 06:49 | NUR ---
Received patient lying in bed with eyes closed. Respiration even and unlabored without SOB. Family at bedside. Urinary catheter intact, in placed. Call light in reach.
[2019-09-14] MEDS: INSULIN LISPRO 100 UNIT/1 ML 3ML VIAL SQ SCH ×4 (07:30→20:08)
[2019-09-14] MEDS: ASPIRIN 81 MG CHEW TAB PO SCH (09:06)
[2019-09-14] MEDS: FAMOTIDINE 20 MG/2 ML VIAL IV SCH ×2 (09:06→17:22)
--- NOTE | 2019-09-14 09:20 | NUR ---
Received verbal order from Agata Desai to continue Plavix 75 mg daily.
[2019-09-14] MEDS: CLOPIDOGREL BISULFATE 75 MG TAB PO SCH (10:56)
[2019-09-14] MEDS: HYDROMORPHONE 1MG/1ML INJ IV PRN ×2 (13:40→19:23)
[2019-09-14] MEDS: ONDANSETRON HCL INJ 2MG/ML 2ML 2 MG/ML VIAL IV PRN ×2 (13:41→19:24)
[2019-09-14] MEDS: ACETAMINOPHEN 325 MG TAB PO PRN ×2 (13:52→21:40)
--- NOTE | 2019-09-14 18:36 | Diagnostic Imaging Report ---
CT BRAIN WO HISTORY: Acute facial droop; possible TIA COMPARISON: None. TECHNIQUE: Noncontrast axial scans were obtained from skull base to the vertex. Coronal and sagittal reconstructions obtained from the axial data. One or more of the following dose reduction techniques were used: Automated exposure control, adjustment of the mA and/or kV according to patient size, and/or utilization of iterative reconstruction technique. DISCUSSION: Scalp/Skull: Unremarkable. Brain sulci: Mildly prominent. Ventricles: Mild compensatory dilatation. Extra-axial spaces: No masses or fluid collections. Bilateral carotid siphon and proximal left middle cerebral artery calcifications are present. Parenchyma: Small focal juxtacortical hypodensity in the left superior cerebellum measures fluid density; this is likely related to an old cortical infarct. A few additional small focal juxtacortical hypodensities in the right superior cerebellum may be due to age indeterminate ischemia. Otherwise, no mass, hemorrhage, or large vascular territory acute infarct. Dural sinuses: No abnormal densities. Sellar/Suprasellar region: Intact. Skull base: Intact. Incidental findings: None. IMPRESSION: 1. A few small focal juxtacortical hypodensities in the right superior cerebellum may be due to age indeterminate ischemia. 2. Associated old small left superior cerebellar cortical infarct. 3. Otherwise, no acute intracranial abnormalities. 4. Mild generalized cerebral volume loss. Signed by: Dr. Julio César Barbosa M.D. on 09/14/2019 6:33 PM
[2019-09-14] MEDS: TAMSULOSIN HCL 0.4 MG CAP PO SCH (21:39)
[2019-09-14] MEDS: ATORVASTATIN 20 MG TAB PO SCH (21:39)
--- NOTE | 2019-09-14 22:30 | NUR ---
Spoke with Amber MATHEW regarding patients left eye limited movement. New orders received.
[2019-09-15] VITALS (8 sets, daily range): BP systolic 138–162; BP diastolic 71–83
[2019-09-15] MEDS: ACETAMINOPHEN 325 MG TAB PO PRN ×2 (02:30→15:28)
[2019-09-15] MEDS: SODIUM CHLORIDE 0.9% 1000ML 1,000 ML IV SCH ×4 (02:43→23:35)
[2019-09-15 02:59] LABS: BASOPHILS % 0.2 % (0.0-1.0); EOSINOPHILS # (AUTO) 0.1 (0.0-0.4); EOSINOPHILS % 0.7 % (0.0-6.0); HEMATOCRIT 30.9 % (38.2-49.6); LYMPHOCYTES # (AUTO) 1.3 (1.0-3.2); LYMPHOCYTES % 10.1 % (18.0-39.1); MEAN CORPUSCULAR HEMOGLOBIN 20.5 pg (28-32); MEAN CORPUSCULAR HGB CONC 29.1 g/dL (31-35); MEAN CORPUSCULAR VOLUME 70.5 fL (81-99); MONOCYTES # (AUTO) 0.8 (0.2-0.8); MONOCYTES % 6.1 % (4.4-11.3); NEUTROPHILS # (AUTO) 10.7 (2.1-6.9); NEUTROPHILS % 81.8 % (38.7-80.0); PLATELET COUNT 319 x10e3/uL (140-360); RED BLOOD COUNT 4.38 x10e6/uL (4.3-5.7); RED CELL DISTRIBUTION WIDTH 17.6 % (11.7-14.4)
[2019-09-15 03:09] LABS: ANION GAP 11.7 mmol/L (8-16); BLOOD UREA NITROGEN 21 mg/dL (7-26); BUN/CREATININE RATIO 28 (6-25); CARBON DIOXIDE 22 mmol/L (22-29); CHLORIDE 107 mmol/L (98-107); CREATININE, SERUM 0.74 mg/dL (0.72-1.25); EST GLOMERULAR FILTRATION RATE > 60 ML/MIN (60-); GLUCOSE 115 mg/dL (74-118); POTASSIUM 3.7 mmol/L (3.5-5.1); SODIUM 137 mmol/L (136-145)
[2019-09-15 03:21] LABS: CHOL/HDL RATIO 3.7 (3.9-4.7)
[2019-09-15] MEDS: HYDROCODONE/APAP 10MG-325MG TAB PO PRN ×2 (05:21→20:30)
[2019-09-15] MEDS: PIPER-TAZ 3.375 GM 50 ML IV SCH ×3 (05:44→22:56)
[2019-09-15] MEDS: INSULIN LISPRO 100 UNIT/1 ML 3ML VIAL SQ SCH ×4 (07:30→20:30)
[2019-09-15] MEDS: ASPIRIN 81 MG CHEW TAB PO SCH (10:00)
[2019-09-15] MEDS: CLOPIDOGREL BISULFATE 75 MG TAB PO SCH (10:00)
[2019-09-15] MEDS: FAMOTIDINE 20 MG/2 ML VIAL IV SCH (10:00)
--- NOTE | 2019-09-15 10:15 | NUR ---
MD MERIDA INTO SEE PT, DISCUSSED POC, CALL LIGHT WITHIN REACH
--- NOTE | 2019-09-15 10:30 | NUR ---
PT WHEELED OFF UNIT VIA WC FOR MRI, NO CHANGE IN CONDITION, FAMILY AT SIDE
--- NOTE | 2019-09-15 12:05 | Diagnostic Imaging Report ---
MRI BRAIN WO HISTORY: Diplopia COMPARISON: Head CT 09/14/2019 TECHNIQUE: Sagittal T2, axial T2, axial T1, axial T2/FLAIR, axial gradient echo (or susceptibility weighted), coronal T2/FLAIR, and axial diffusion weighted MR images of the brain were obtained without contrast. DISCUSSION: Scalp/bone marrow: Unremarkable. Brain sulci: Prominent. Ventricles: Compensatory dilatation. Extra-axial spaces: No masses or fluid collections. Parenchyma: A few small foci of mild diffusion restriction (bright on DWI, dark to isointense on ADC) are seen in the bilateral superior cerebellar hemispheres. There is corresponding T2/FLAIR hyperintensity. No other diffusion restricting abnormalities are seen. No other diffusion restricting abnormalities are seen. Otherwise, no mass, or hemorrhage. Vessels: There is abnormal T2/FLAIR hyperintensity within the intradural left vertebral artery. Otherwise, unremarkable. Sellar/Suprasellar region: No abnormalities. Craniocervical junction: No abnormalities. Incidental findings: Small left maxillary sinus retention cyst. IMPRESSION: 1. A few old small acute to subacute cortical infarcts in the bilateral superior cerebellar hemispheres. 2. Abnormal T2/FLAIR hyperintensity within the intradural left vertebral artery may be due to sluggish and/or turbulent flow. 3. No other acute intracranial abnormalities. 4. Mild generalized cerebral volume loss. Signed by: Dr. Julio César Barbosa M.D. on 09/15/2019 12:02 PM
--- NOTE | 2019-09-15 12:23 | Diagnostic Imaging Report ---
MRA NECK WO, MRA HEAD WO HISTORY: Diplopia COMPARISON: MRI of the brain 09/15/2019 TECHNIQUE: Axial 2D cervical, and axial 3D intracranial [id number] MRA images were obtained without contrast. Maximum intensity projection images were created. If present, any cervical carotid stenosis will be measured as a percentage relative to the [place] artery distal to the stenosis. FINDINGS: CERVICAL MRA: Please note that the origins of the vertebral arteries are poorly imaged. Right Carotid: No flow abnormalities. Left Carotid: No flow abnormalities. Right vertebral artery: No flow abnormalities. Left vertebral artery: There is focal attenuation of flow signal in the left vertebral artery V3 segment. No other flow abnormalities. INTRACRANIAL MRA: Carotid arteries: No flow abnormalities in the intracranial internal carotid arteries. Normal A1 and M1 segments. Vertebrobasilar Circulation: Right vertebral artery: There is mild to moderate focal stenosis at the right vertebrobasilar junction. No other flow abnormalities. Left vertebral artery: The V4 segment of the left vertebral artery is small with occlusion at the distal segment V4 segment. Basilar artery: No other flow abnormalities. Posterior cerebral arteries: No flow signal seen bilaterally (starting at the P1 segments). Both superior cerebellar arteries are grossly patent. Normal Variants: ACom: Visualized. PComs: Not visualized. Vertebral arteries: Right dominant. IMPRESSION: 1. 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 Associated attenuated flow signal within the left vertebral artery V3 and proximal V4 segments. 2. Mild to moderate focal stenosis at the right vertebral artery-basilar artery junction. 3. Absent flow signal in the bilateral posterior cerebral arteries could be due to age indeterminate bilateral occlusion. No ischemic changes are seen in the posterior cerebral artery territories on concurrent brain MRI. Both superior cerebellar arteries are grossly patent. 4. No other intracranial or cervical MRA abnormalities. Please note that the vertebral artery origins are poorly imaged. Further evaluation with CTA of the head/neck is recommended if clinically feasible. Signed by: Dr. Julio César Barbosa M.D. on 09/15/2019 12:20 PM
--- NOTE | 2019-09-15 14:10 | NUR ---
BACK IN ROOM, NEUROLOGIST INTO SEE PT, DISCUSSED POC, EYE PATCH PLACED PER MD ORDER, PT AMBULATED IN HALLWAY, STEADY GAIT
[2019-09-15] MEDS: GUAIFENESIN 600MG/DEXTROMETHORPHAN 30MG TABSR PO SCH (18:37)
[2019-09-15] MEDS ORDERED: GUAIFENESIN 600MG/DEXTROMETHORPHAN 30MG TABSR PO ONE (18:40)
[2019-09-15] MEDS: ATORVASTATIN 20 MG TAB PO SCH (20:30)
[2019-09-15] MEDS: TAMSULOSIN HCL 0.4 MG CAP PO SCH (20:30)
--- NOTE | 2019-09-15 20:30 | NUR ---
PATIENT RESTING IN BED AOX3 IN STABLE CONDITION, NO SIGNS OF RESPIRATORY DISTRESS NOTED. FAMILY MEMBERS ARE AT BEDSIDE AND PATIENT VOICES PAIN AT A LEVEL OF 7 AND WAS MEDICATED ORDERED. MICHAEL DRAIN IS INTACT, SEROSANGUINEOUS FLUID NOTED. BED IS IN LOWEST POSITION, BOTH SIDE RAILS ARE UP, CALL LIGHT IS WITHIN EASY REACH, WILL CONTINUE TO MONITOR.
[2019-09-15] MEDS ORDERED: FAMOTIDINE 20 MG/2 ML VIAL IV SCH (21:00)
--- NOTE | 2019-09-15 22:50 | NUR ---
PATIENT GOT OUT OF BED SOMEWHAT CONFUSED. WANTED TO USE RESTROOM TO URINATE, BUT DID NOT MAKE IT IN TIME. SANITATION SERVICES WERE CALLED FOR CLEAN UP. DAUGHTER VOICED THAT PATIENT DOES NOT RESPOND TO HYDROCODONE WELL, WHICH EXPLAINED PATIENT'S SLIGHT CONFUSION, CONTINUING TO MONITOR.
[2019-09-15] MEDS: ONDANSETRON HCL INJ 2MG/ML 2ML 2 MG/ML VIAL IV PRN (23:03)
[2019-09-16] VITALS (8 sets, daily range): BP systolic 137–178; BP diastolic 69–94
--- NOTE | 2019-09-16 04:51 | Consultation ---
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 Neurology consult for double vision and dysconjugate eye movements. The patient has history of diabetes. He also has history of cerebellar strokes and severe intracranial atherosclerotic disease for which he has been maintained on Plavix and statins. He also has history of hypertension and hyperlipidemia. No other neurologic symptoms are reported. SOCIAL HISTORY: Noncontributory. FAMILY HISTORY: Noncontributory ALLERGIES: NO KNOWN DRUG ALLERGIES. MEDICATIONS: Per chart includes aspirin, Plavix, and atorvastatin. REVIEW OF SYSTEMS: A 14-point review of system other than what is mentioned above is negative. PHYSICAL EXAMINATION: VITAL SIGNS: Temperature 98, respiratory rate 16, pulse rate 80, and blood pressure 121/67. HEAD AND NECK: No meningeal signs. LUNGS: Fair air entry. ABDOMEN: Bowel sounds present. NEUROLOGIC: Alert, follows commands. Normal speech. He has abnormal eye movements with inability to adduct the left eye past midline and also has difficulty opening his left eye. Full visual lindsay to confrontation. No other eye movement abnormality noted. He has bilateral facial asymmetry more so on the left. Pinprick is normal. [id number] is abnormal bilaterally. The patient has the same abnormal tandem gait. No lateralized weakness. Deep tendon reflexes are 2. Plantars are flexor. He has also decreased pinprick, vibration, proprioception distally in the hands. The patient already underwent an MRI of the brain today, which shows severe atherosclerotic disease, intracranial and extracranial. However, no acute stroke is noted. He has old bilateral posterior circulation and cerebellar strokes. ASSESSMENT: 1. 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 There is no evidence of acute stroke on imaging and no evidence of posterior communicating artery aneurysm to suggest otherwise. Less likely, it would be a leptomeningeal disease and cranial neuropathies secondary to that, however, that not likely considering that he does not have any other cranial neuropathies. 2. Cancer of the cecum. 3. Appendicitis. 4. Liver metastasis. 5. Lymphadenopathy. 6. Diverticulosis. 7. Iron deficiency anemia. 8. Hypoproteinemia. 9. hypoalbuminemia. 10. History of bilateral atherosclerotic disease. 11. Hyperlipidemia. 12. Diabetes. Recommend, generally speaking, the treatment at this point is supportive and treating his diabetes. He needs his eye covered. He might benefit from Ophthalmology evaluation at one point. Considering the severe atherosclerotic disease he had and history of strokes, he needs to continue with antiplatelets as well as high dose statins. He is at high risk of having another stroke in the event his antiplatelets are stopped. Discussed case with and family. Considering his acute diagnosis of metastatic colon cancer, the family will be probably following about that with Oncology for potential treatment. It seems that his cancer is terminal at this point and treatment might not be helpful, however, that is deferred to the opinion of Oncology. The patient works at [employer] and the told me that she is thinking about transferring him there. Lion Brooks MD AM/DALLIN /[id number]
[2019-09-16] MEDS: PIPER-TAZ 3.375 GM 50 ML IV SCH ×3 (05:29→22:38)
[2019-09-16 06:38] LABS: BASOPHILS % 0.2 % (0.0-1.0); EOSINOPHILS # (AUTO) 0.2 (0.0-0.4); HEMATOCRIT 27.2 % (38.2-49.6); HEMOGLOBIN 7.9 g/dL (14.0-18.0); LYMPHOCYTES # (AUTO) 1.6 (1.0-3.2); LYMPHOCYTES % 13.7 % (18.0-39.1); MEAN CORPUSCULAR HEMOGLOBIN 20.5 pg (28-32); MEAN CORPUSCULAR VOLUME 70.6 fL (81-99); MONOCYTES % 8.5 % (4.4-11.3); NEUTROPHILS # (AUTO) 8.6 (2.1-6.9); NEUTROPHILS % 73.6 % (38.7-80.0); PLATELET COUNT 281 x10e3/uL (140-360); RED BLOOD COUNT 3.85 x10e6/uL (4.3-5.7); RED CELL DISTRIBUTION WIDTH 17.5 % (11.7-14.4)
[2019-09-16 06:47] LABS: BLOOD UREA NITROGEN 11 mg/dL (7-26); BUN/CREATININE RATIO 15 (6-25); CALCIUM 7.6 mg/dL (8.4-10.2); CARBON DIOXIDE 28 mmol/L (22-29); CHLORIDE 108 mmol/L (98-107); CREATININE, SERUM 0.71 mg/dL (0.72-1.25); EST GLOMERULAR FILTRATION RATE > 60 ML/MIN (60-); GLUCOSE 93 mg/dL (74-118); POTASSIUM 3.9 mmol/L (3.5-5.1); SODIUM 138 mmol/L (136-145)
[2019-09-16 06:48] LABS: ANION GAP 5.9 mmol/L (8-16)
[2019-09-16] MEDS: INSULIN LISPRO 100 UNIT/1 ML 3ML VIAL SQ SCH ×4 (07:30→21:00)
[2019-09-16] MEDS: SODIUM CHLORIDE 0.9% 1000ML 1,000 ML IV SCH (07:34)
[2019-09-16 08:04] LABS: HYPOCHROMASIA MODERATE; RBC MORPHOLOGY COMMENT ABNORMAL
[2019-09-16] MEDS: GUAIFENESIN 600MG/DEXTROMETHORPHAN 30MG TABSR PO SCH ×2 (08:44→21:00)
[2019-09-16] MEDS: ASPIRIN 81 MG CHEW TAB PO SCH (08:44)
[2019-09-16] MEDS: CLOPIDOGREL BISULFATE 75 MG TAB PO SCH (08:44)
--- NOTE | 2019-09-16 16:30 | NUR ---
Nutrition Screen Note RD Recommendation for Physician: -Continue GI soft diet as tolerated Plan of Care: RD following, monitoring for tolerance and adequacy Nutrition reason for involvement: Length of stay Primary Diagnose(s): appendicitis, cecal carcinoma with mets to liver PMH: diabetes, TIAs Ht: 71 in Wt:210 lb BMI: 29.3 kg/m2 IBW: [address] Assessment: (09/15) Chart reviewed. Labs and meds reviewed. Pt is a 59 year old male admitted with appendicitis and was found to have cecal carcinoma with mets to the liver. Pt was on a full liquid diet at time of visit and is now advanced to a GI Soft diet. Pt had been NPO or on a liquid diet since . Pt stated his appetite is getting better and was tolerating liquids. Prior to admission, pt reports he was eating >50% of his meals. Pt mentioned he usually weighs 203 lbs, but has a weight of 210 lbs currently in chart. Therefore, no weight loss is evident. No N/V/D/C or chewing/swallowing issues at this time. Will continue to monitor. Current Diet: GI Soft diet Malnutrition Evaluation (09/16/19) The patient does not meet criteria for a specified degree of malnutrition at this time. Will re-evaluate at follow-up as appropriate. Diet Education Needs Assessment: RD is available for diet education as needed Nutrition Care Level: moderate Signed: Silvia Red RD, LD
[2019-09-16] MEDS ORDERED: FUROSEMIDE INJ 10 MG/ML 2 ML VIAL IV PRN ×2 (19:45)
[2019-09-16] MEDS ORDERED: SODIUM CHLORIDE 0.9% 250ML 250 ML IV SCH (20:15)
[2019-09-16 20:21] LABS: BASOPHILS % 0.2 % (0.0-1.0); EOSINOPHILS # (AUTO) 0.2 (0.0-0.4); EOSINOPHILS % 1.4 % (0.0-6.0); HEMATOCRIT 26.4 % (38.2-49.6); HEMOGLOBIN 7.9 g/dL (14.0-18.0); LYMPHOCYTES # (AUTO) 1.6 (1.0-3.2); LYMPHOCYTES % 13.9 % (18.0-39.1); MEAN CORPUSCULAR HEMOGLOBIN 20.7 pg (28-32); MEAN CORPUSCULAR HGB CONC 29.9 g/dL (31-35); MEAN CORPUSCULAR VOLUME 69.1 fL (81-99); MONOCYTES # (AUTO) 0.8 (0.2-0.8); MONOCYTES % 6.9 % (4.4-11.3); NEUTROPHILS # (AUTO) 8.6 (2.1-6.9); NEUTROPHILS % 75.8 % (38.7-80.0); PLATELET COUNT 309 x10e3/uL (140-360); RED BLOOD COUNT 3.82 x10e6/uL (4.3-5.7); RED CELL DISTRIBUTION WIDTH 17.4 % (11.7-14.4)
--- NOTE | 2019-09-16 20:30 | NUR ---
PATIENT RESTING IN BED AOX3 IN STABLE CONDITION, NO SIGNS OF RESPIRATORY DISTRESS NOTED. FAMILY MEMBERS ARE AT BEDSIDE AND PATIENT VOICES PAIN AT A LEVEL OF 7 AND WAS MEDICATED ORDERED. MICHAEL DRAIN IS INTACT, SEROSANGUINEOUS FLUID NOTED. PATIENT AWARE OF BLOOD TRANSFUSION TO BE DONE AND TYPE AND CROSS WILL BE DONE WELL. BED IS IN LOWEST POSITION, BOTH SIDE RAILS ARE UP, CALL LIGHT IS WITHIN EASY REACH, WILL CONTINUE TO MONITOR.
[2019-09-16] MEDS: TAMSULOSIN HCL 0.4 MG CAP PO SCH (21:00)
[2019-09-16] MEDS: ATORVASTATIN 40 MG TAB PO SCH (21:00)
[2019-09-16] MEDS: ONDANSETRON HCL 4 MG ORAL DISINTEGRATING TAB PO PRN (21:00)
[2019-09-16] MEDS: HYDROMORPHONE 1MG/1ML INJ IV PRN (21:00)
[2019-09-16] MEDS: FAMOTIDINE 20 MG TAB PO SCH (21:00)
[2019-09-17] VITALS (8 sets, daily range): BP systolic 121–157; BP diastolic 60–96
--- NOTE | 2019-09-17 01:51 | Progress Note ---
DATE: 09/16/2019 SUBJECTIVE: The patient with normal changes . OBJECTIVE: Exam is the same with the left medial adduction, limitation of the left eye and ptosis on the left. 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 No evidence of aneurysm or stroke at this time. Old history of strokes with severe atherosclerotic disease. The patient is having neuropathies and bleeding. From a neuro standpoint, the patient needs to be on antiplatelets at least aspirin 81 mg daily, if no other contraindications exist. We will have to weigh the risks and benefits off antiplatelets versus non, depending on the severity of his bleeding. Continue high dose statins to cover the left eye supportive care. Dystrophic colon cancer per the primary service and Oncology. Lion Brooks MD AM/DALLIN /[id number]
[2019-09-17] MEDS ORDERED: SODIUM CHLORIDE 0.9% 250ML 250 ML ONE (02:40)
[2019-09-17] MEDS ORDERED: FUROSEMIDE INJ 10 MG/ML 2 ML VIAL IV PRN (03:44)
[2019-09-17] MEDS: HYDROMORPHONE 1MG/1ML INJ IV PRN ×2 (06:19→21:00)
[2019-09-17] MEDS: ONDANSETRON HCL 4 MG ORAL DISINTEGRATING TAB PO PRN ×2 (06:19→20:45)
[2019-09-17] MEDS: SODIUM CHLORIDE 0.9% 1000ML 1,000 ML IV SCH (07:29)
[2019-09-17] MEDS: INSULIN LISPRO 100 UNIT/1 ML 3ML VIAL SQ SCH ×4 (07:30→21:01)
[2019-09-17] MEDS: GUAIFENESIN 600MG/DEXTROMETHORPHAN 30MG TABSR PO SCH ×2 (08:44→21:08)
[2019-09-17] MEDS: ASPIRIN 81 MG CHEW TAB PO SCH (08:44)
[2019-09-17] MEDS: FAMOTIDINE 20 MG TAB PO SCH ×2 (08:44→21:08)
[2019-09-17] MEDS ORDERED: DEXAMETHASONE PHOS 10MG INJ 20 MG in SODIUM CHLORIDE 0.9% 50ML 50 ML IV SCH (09:00)
[2019-09-17] MEDS ORDERED: FAMOTIDINE INJ 20 MG in SODIUM CHLORIDE 0.9% 50ML 50 ML IV SCH (09:30)
[2019-09-17] MEDS: PIPER-TAZ 3.375 GM 50 ML IV SCH ×2 (09:31→17:11)
[2019-09-17] MEDS ORDERED: DIPHENHYDRAMINE HCL INJ 25 MG in SODIUM CHLORIDE 0.9% 50ML 50 ML IV SCH (10:00)
[2019-09-17] MEDS ORDERED: IRON DEXTRAN INJ 50 MG in SODIUM CHLORIDE 0.9% 100 ML IV SCH (10:40)
--- NOTE | 2019-09-17 12:00 | NUR ---
patient requesting to shower. Spoke with Dr. David regarding shower order and incision care post shower.
--- NOTE | 2019-09-17 12:45 | NUR ---
patient showered with assistance from . incision and MICHAEL drain re-dressed with dry gauzes and tape. patient doing well at this time.
[2019-09-17] MEDS: ACETAMINOPHEN 325 MG TAB PO PRN ×2 (14:53→21:01)
[2019-09-17 15:03] LABS: BASOPHILS % 0.2 % (0.0-1.0); EOSINOPHILS # (AUTO) 0.2 (0.0-0.4); EOSINOPHILS % 1.9 % (0.0-6.0); HEMATOCRIT 32.5 % (38.2-49.6); HEMOGLOBIN 9.8 g/dL (14.0-18.0); LYMPHOCYTES # (AUTO) 1.4 (1.0-3.2); LYMPHOCYTES % 11.2 % (18.0-39.1); MEAN CORPUSCULAR HEMOGLOBIN 21.8 pg (28-32); MEAN CORPUSCULAR HGB CONC 30.2 g/dL (31-35); MEAN CORPUSCULAR VOLUME 72.2 fL (81-99); MONOCYTES # (AUTO) 0.8 (0.2-0.8); MONOCYTES % 6.5 % (4.4-11.3); NEUTROPHILS # (AUTO) 9.6 (2.1-6.9); NEUTROPHILS % 78.1 % (38.7-80.0); PLATELET COUNT 334 x10e3/uL (140-360); RED CELL DISTRIBUTION WIDTH 19.4 % (11.7-14.4)
[2019-09-17] MEDS ORDERED: LACTULOSE SYRUP 20 GM/30 ML UDC PO PRN (15:15)
[2019-09-17 15:17] LABS: ANION GAP 8.8 mmol/L (8-16); POTASSIUM 3.8 mmol/L (3.5-5.1)
[2019-09-17] MEDS ORDERED: LACTULOSE SYRUP 20 GM/30 ML UDC PO NR (15:30)
--- NOTE | 2019-09-17 17:06 | NUR ---
patient ambulated over 200 feet 2 times today. doing well ambulating with the walker.
--- NOTE | 2019-09-17 18:12 | NUR ---
Patient tolerated infed test dose with no reactions. pharmacy making full dose and will deliver to unit.
[2019-09-17] MEDS ORDERED: IRON DEXTRAN INJ 500 MG in SODIUM CHLORIDE 0.9% 500ML 500 ML IV PRN (18:15)
[2019-09-17] MEDS: TAMSULOSIN HCL 0.4 MG CAP PO SCH (21:08)
[2019-09-17] MEDS: ATORVASTATIN 40 MG TAB PO SCH (21:08)
[2019-09-18] VITALS (8 sets, daily range): BP systolic 129–153; BP diastolic 79–90
[2019-09-18] MEDS: PIPER-TAZ 3.375 GM 50 ML IV SCH ×3 (00:41→16:35)
--- NOTE | 2019-09-18 01:00 | Progress Note ---
DATE: 09/17/2019 SUBJECTIVE: The patient feels better today. Discussed with at bedside his condition. MEDICATIONS: Per medication list. OBJECTIVE: VITAL SIGNS: Temperature 98, respiratory rate 16, pulse rate 80, blood pressure 121/60. LUNGS: Fair air entry. NEUROLOGIC: The patient is alert. Follows commands. Normal mental status examination. Left 3rd nerve palsy noted. Bilateral facial asymmetry. Gait, abnormal tandem gait. No lateralized weakness. Ataxic gait noted. ASSESSMENT: 1. Old strokes with severe atherosclerotic disease in the brain. 2. Left 3rd nerve palsy, diabetes related probably. PLAN: Need to continue antiplatelets as well as high dose statins for stroke prophylaxis. At this time, his antiplatelets will be on hold because of bleeding. Once his bleeding is controlled, antiplatelets will be resumed. This was discussed with the . She understands the risk of having recurrent strokes because his Plavix is on hold because of his bleeding. Needs therapy. Answered all the questions the had today as well as the patient. Lion Brooks MD AM/DALLIN /[id number]
[2019-09-18] MEDS: SODIUM CHLORIDE 0.9% 1000ML 1,000 ML IV SCH ×4 (01:44→23:29)
--- NOTE | 2019-09-18 01:50 | NUR ---
INFORMED DR. Agata FUNEZ OF BLACK STOOL. NO NEW ORDER.
[2019-09-18 06:15] LABS: BASOPHILS % 0.1 % (0.0-1.0); HEMATOCRIT 32.3 % (38.2-49.6); HEMOGLOBIN 9.5 g/dL (14.0-18.0); LYMPHOCYTES # (AUTO) 0.8 (1.0-3.2); MEAN CORPUSCULAR HEMOGLOBIN 21.2 pg (28-32); MEAN CORPUSCULAR HGB CONC 29.4 g/dL (31-35); MEAN CORPUSCULAR VOLUME 72.1 fL (81-99); MONOCYTES # (AUTO) 0.3 (0.2-0.8); MONOCYTES % 3.5 % (4.4-11.3); NEUTROPHILS # (AUTO) 7.9 (2.1-6.9); NEUTROPHILS % 85.1 % (38.7-80.0); PLATELET COUNT 339 x10e3/uL (140-360); RED BLOOD COUNT 4.48 x10e6/uL (4.3-5.7); RED CELL DISTRIBUTION WIDTH 19.4 % (11.7-14.4)
--- NOTE | 2019-09-18 07:00 | NUR ---
Received patient lying in bed with eyes open. Respiration even and unlabored without SOB. Spouse at bedside. Denies pain at this time. Call light in reach.
[2019-09-18] MEDS: INSULIN LISPRO 100 UNIT/1 ML 3ML VIAL SQ SCH ×4 (07:30→19:57)
[2019-09-18 07:34] LABS: ANISOCYTOSIS MODERATE; ELLIPTOCYTE, RBC SLIGHT; HYPOCHROMASIA SLIGHT; LYMPHOCYTES % (MANUAL) 11 % (19-48); MICROCYTOSIS SLIGHT; MONOCYTES % (MANUAL) 4 % (3.4-9.0); NEUTROPHILS % (MANUAL) 85 % (40-74)
[2019-09-18 07:35] LABS: PLATELET ESTIMATE ADEQUATE; PLATELET MORPHOLOGY COMMENT NORMAL; RBC MORPHOLOGY COMMENT ABNORMAL; TEAR DROP CELLS FEW
[2019-09-18] MEDS: FAMOTIDINE 20 MG TAB PO SCH ×2 (09:00→20:54)
[2019-09-18] MEDS: ASPIRIN 81 MG CHEW TAB PO SCH (09:00)
[2019-09-18] MEDS: GUAIFENESIN 600MG/DEXTROMETHORPHAN 30MG TABSR PO SCH ×2 (09:00→20:54)
[2019-09-18] MEDS ORDERED: IRON DEXTRAN INJ 500 MG in SODIUM CHLORIDE 0.9% 500ML 500 ML IV PRN (12:00)
--- NOTE | 2019-09-18 19:10 | NUR ---
Report given to rn shift mgr. Respiration even and unlabored without SOB. Call light in reach.
[2019-09-18] MEDS: ONDANSETRON HCL 4 MG ORAL DISINTEGRATING TAB PO PRN (19:49)
[2019-09-18] MEDS: HYDROMORPHONE 1MG/1ML INJ IV PRN (19:50)
[2019-09-18] MEDS: ATORVASTATIN 40 MG TAB PO SCH (20:54)
[2019-09-18] MEDS: TAMSULOSIN HCL 0.4 MG CAP PO SCH (20:54)
[2019-09-19] VITALS (9 sets, daily range): BP systolic 116–173; BP diastolic 64–81
[2019-09-19] MEDS: PIPER-TAZ 3.375 GM 50 ML IV SCH ×3 (01:00→18:45)
--- NOTE | 2019-09-19 03:19 | NUR ---
DR. Agata FUNEZ DOING ROUNDS. INFORMED MD THAT PATIENT HAD A BLACK STOOL. NO NEW ORDER.
--- NOTE | 2019-09-19 07:11 | NUR ---
Received bedside shift report from off going nurse. Patient sleeping at this time with no visible signs of distress or discomfort noted. Spouse at bedside. Call light within reach.
[2019-09-19] MEDS: SODIUM CHLORIDE 0.9% 1000ML 1,000 ML IV SCH ×2 (07:24→23:55)
[2019-09-19] MEDS: INSULIN LISPRO 100 UNIT/1 ML 3ML VIAL SQ SCH ×4 (07:30→21:00)
[2019-09-19] MEDS: GUAIFENESIN 600MG/DEXTROMETHORPHAN 30MG TABSR PO SCH ×2 (10:45→21:17)
[2019-09-19] MEDS: ASPIRIN 81 MG CHEW TAB PO SCH (10:45)
[2019-09-19] MEDS: FAMOTIDINE 20 MG TAB PO SCH ×2 (10:45→21:17)
[2019-09-19] MEDS: ATORVASTATIN 40 MG TAB PO SCH (21:17)
[2019-09-19] MEDS: TAMSULOSIN HCL 0.4 MG CAP PO SCH (21:17)
[2019-09-19] MEDS: HYDROMORPHONE 1MG/1ML INJ IV PRN (21:20)
[2019-09-19] MEDS: ONDANSETRON HCL 4 MG ORAL DISINTEGRATING TAB PO PRN (21:20)
[2019-09-19] MEDS: ACETAMINOPHEN 325 MG TAB PO PRN (21:36)
[2019-09-20] VITALS (8 sets, daily range): BP systolic 118–129; BP diastolic 63–77
[2019-09-20] MEDS: PIPER-TAZ 3.375 GM 50 ML IV SCH ×3 (01:52→17:16)
[2019-09-20 06:49] LABS: BASOPHILS % 0.2 % (0.0-1.0); EOSINOPHILS # (AUTO) 0.3 (0.0-0.4); EOSINOPHILS % 2.5 % (0.0-6.0); HEMATOCRIT 32.7 % (38.2-49.6); HEMOGLOBIN 9.5 g/dL (14.0-18.0); LYMPHOCYTES # (AUTO) 1.9 (1.0-3.2); LYMPHOCYTES % 15.8 % (18.0-39.1); MEAN CORPUSCULAR HEMOGLOBIN 21.6 pg (28-32); MEAN CORPUSCULAR HGB CONC 29.1 g/dL (31-35); MEAN CORPUSCULAR VOLUME 74.3 fL (81-99); MONOCYTES # (AUTO) 0.9 (0.2-0.8); MONOCYTES % 7.3 % (4.4-11.3); NEUTROPHILS # (AUTO) 8.7 (2.1-6.9); NEUTROPHILS % 72.5 % (38.7-80.0); PLATELET COUNT 376 x10e3/uL (140-360)
[2019-09-20 07:17] LABS: ANION GAP 8.7 mmol/L (8-16); BLOOD UREA NITROGEN 13 mg/dL (7-26); BUN/CREATININE RATIO 15 (6-25); CALCIUM 8.3 mg/dL (8.4-10.2); CARBON DIOXIDE 27 mmol/L (22-29); CHLORIDE 108 mmol/L (98-107); CREATININE, SERUM 0.89 mg/dL (0.72-1.25); EST GLOMERULAR FILTRATION RATE > 60 ML/MIN (60-); GLUCOSE 95 mg/dL (74-118); MAGNESIUM 1.9 MG/DL (1.3-2.1); PHOSPHORUS 3.4 MG/DL (2.3-4.7); POTASSIUM 4.7 mmol/L (3.5-5.1); SODIUM 139 mmol/L (136-145)
[2019-09-20] MEDS: INSULIN LISPRO 100 UNIT/1 ML 3ML VIAL SQ SCH ×4 (07:30→21:34)
[2019-09-20] MEDS: FAMOTIDINE 20 MG TAB PO SCH ×2 (10:31→21:34)
[2019-09-20] MEDS: GUAIFENESIN 600MG/DEXTROMETHORPHAN 30MG TABSR PO SCH ×2 (10:31→21:34)
[2019-09-20] MEDS: ASPIRIN 81 MG CHEW TAB PO SCH (10:31)
[2019-09-20] MEDS: SODIUM CHLORIDE 0.9% 1000ML 1,000 ML IV SCH (14:26)
--- NOTE | 2019-09-20 14:39 | NUR ---
called Dr. Rehman and informed him of positive occult stool; he states pt cannot be discharged at this time.
[2019-09-20] MEDS: ATORVASTATIN 40 MG TAB PO SCH (21:34)
[2019-09-20] MEDS: TAMSULOSIN HCL 0.4 MG CAP PO SCH (21:34)
[2019-09-20] MEDS: ONDANSETRON HCL 4 MG ORAL DISINTEGRATING TAB PO PRN (21:37)
[2019-09-20] MEDS: HYDROMORPHONE 1MG/1ML INJ IV PRN (21:37)
[2019-09-21] VITALS (8 sets, daily range): BP systolic 120–136; BP diastolic 62–80
--- NOTE | 2019-09-21 00:10 | NUR ---
AAOX3.ASSESSMENT DONE.NO RESP.DISTRESS.IV FLUID RUNNING.BED LOCKED AND IN LOWEST POSITION.PHONE AND CALL LIGHT WITHIN REACH.INSTRUCTED TO CALL FOR ASSISTANCE NEEDED.
[2019-09-21] MEDS: PIPER-TAZ 3.375 GM 50 ML IV SCH ×3 (00:20→18:06)
[2019-09-21] MEDS: SODIUM CHLORIDE 0.9% 1000ML 1,000 ML IV SCH ×2 (04:51→20:13)
--- NOTE | 2019-09-21 07:00 | NUR ---
Bed side shift report given to oncoming rn.stable condition.
--- NOTE | 2019-09-21 07:00 | NUR ---
BEDSIDE SHIFT REPORT RECEIVED FROM ROUTE SUPERVISOR RN, PT LAYING SEMI FOWLERS IN BED, AWAKE, ALERT, ORIENTED X3, NO SIGNS OF DISTRESS. WILL CONTINUE TO MONITOR.
[2019-09-21] MEDS: INSULIN LISPRO 100 UNIT/1 ML 3ML VIAL SQ SCH ×4 (07:30→20:20)
[2019-09-21] MEDS: ASPIRIN 81 MG CHEW TAB PO SCH (10:52)
[2019-09-21] MEDS: FAMOTIDINE 20 MG TAB PO SCH ×2 (10:53→20:13)
[2019-09-21] MEDS: GUAIFENESIN 600MG/DEXTROMETHORPHAN 30MG TABSR PO SCH ×2 (10:53→20:13)
--- NOTE | 2019-09-21 17:29 | NUR ---
Nutrition Screen Note RD Recommendation for Physician: -Continue GI soft diet as tolerated Plan of Care: RD following, monitoring for tolerance and adequacy Nutrition reason for involvement: follow up Primary Diagnose(s): appendicitis, cecal carcinoma with mets to liver PMH: diabetes, TIAs Ht: 71 in Wt: 191 lbs (09/20) 210 lb (09/12) BMI: 26.7 kg/m2 IBW: [address] Assessment: (09/20) Follow up. Pt reports he has been eating >50% of his meals and is tolerating GI soft diet. No N/V/D/C or chewing/swallowing issues. Pt did not have any questions at time of visit. Will continue to monitor. (09/15) Chart reviewed. Labs and meds reviewed. Pt is a 59 year old male admitted with appendicitis and was found to have cecal carcinoma with mets to the liver. Pt was on a full liquid diet at time of visit and is now advanced to a GI Soft diet. Pt had been NPO or on a liquid diet since . Pt stated his appetite is getting better and was tolerating liquids. Prior to admission, pt reports he was eating >50% of his meals. Pt mentioned he usually weighs 203 lbs, but has a weight of 210 lbs currently in chart. Therefore, no weight loss is evident. No N/V/D/C or chewing/swallowing issues at this time. Will continue to monitor. Current Diet: GI Soft diet Malnutrition Evaluation (09/16/19) The patient does not meet criteria for a specified degree of malnutrition at this time. Will re-evaluate at follow-up as appropriate. Diet Education Needs Assessment: RD is available for diet education as needed Nutrition Care Level: low Signed: Silvia Red, RD, LD
--- NOTE | 2019-09-21 19:11 | NUR ---
WALKING ROUNDS PERFORMED, RECEIVED PT LAYING SEMI FOWLERS IN BED, AAOX3, RR EVEN AND NON-LABORED, ON ROOM AIR. NO S/SX OF DISTRESS NOTED. INCISION TO ANTERIOR ABD NOTED TO BE CDI, OPEN TO AIR. LEFT PT LAYING SEMI FOWLERS IN BED, BED IN LOW LOCKED POSITION, SIDE RAILS UPX2, CALL LIGHT AND PHONE WITHIN REACH. FAMILY AT BEDSIDE.
[2019-09-21] MEDS: ATORVASTATIN 40 MG TAB PO SCH (20:13)
[2019-09-21] MEDS: TAMSULOSIN HCL 0.4 MG CAP PO SCH (20:13)
[2019-09-21] MEDS ORDERED: PANTOPRAZOLE 40 MG 10ML VIAL IV NR (21:45)
[2019-09-21] MEDS: SUCRALFATE 1 GM TAB PO SCH (21:58)
[2019-09-21] MEDS: HYDROMORPHONE 1MG/1ML INJ IV PRN (22:03)
[2019-09-21] MEDS: PANTOPRAZOL 40MG/SOD CHL 0.9% 50 ML IV SCH (22:03)
[2019-09-21] MEDS: ONDANSETRON HCL 4 MG ORAL DISINTEGRATING TAB PO PRN (22:04)
[2019-09-21] MEDS: ACETAMINOPHEN 325 MG TAB PO PRN (22:14)
[2019-09-22] VITALS (8 sets, daily range): BP systolic 111–145; BP diastolic 60–79
[2019-09-22] MEDS: PIPER-TAZ 3.375 GM 50 ML IV SCH ×3 (00:51→16:42)
[2019-09-22] MEDS: PANTOPRAZOL 40MG/SOD CHL 0.9% 50 ML IV SCH ×5 (02:03→23:03)
[2019-09-22 06:15] LABS: BASOPHILS % 0.2 % (0.0-1.0); EOSINOPHILS # (AUTO) 0.3 (0.0-0.4); EOSINOPHILS % 2.4 % (0.0-6.0); HEMATOCRIT 32.2 % (38.2-49.6); HEMOGLOBIN 9.6 g/dL (14.0-18.0); LYMPHOCYTES # (AUTO) 1.9 (1.0-3.2); LYMPHOCYTES % 16.8 % (18.0-39.1); MEAN CORPUSCULAR HEMOGLOBIN 22.2 pg (28-32); MEAN CORPUSCULAR HGB CONC 29.8 g/dL (31-35); MEAN CORPUSCULAR VOLUME 74.4 fL (81-99); MONOCYTES # (AUTO) 0.8 (0.2-0.8); MONOCYTES % 7.5 % (4.4-11.3); NEUTROPHILS % 72.5 % (38.7-80.0); PLATELET COUNT 406 x10e3/uL (140-360); RED BLOOD COUNT 4.33 x10e6/uL (4.3-5.7); RED CELL DISTRIBUTION WIDTH 21.5 % (11.7-14.4)
[2019-09-22 06:56] LABS: ELLIPTOCYTE, RBC SLIGHT; OVALOCYTES FEW
[2019-09-22 06:57] LABS: SCHISTOCYTES FEW
[2019-09-22 06:58] LABS: ANISOCYTOSIS MODERATE; PLATELET ESTIMATE SLIGHTLY INCREASED; PLATELET MORPHOLOGY COMMENT FEW LARGE; RBC MORPHOLOGY COMMENT ABNORMAL
[2019-09-22 06:59] LABS: POLYCHROMASIA FEW
[2019-09-22 07:00] LABS: MICROCYTOSIS SLIGHT
--- NOTE | 2019-09-22 07:00 | NUR ---
RECD PATIENT IN BED DURING BEDSIDE REPORT, SLEEPING IN ROOM, DENIES DISCOMFORT. ABD SOFT AND SLIGHTLY TENDER TO PALP. KARLOS MIDLINE CDI LESLYE DRY, NO REDNESS NOTED. IN NO DISTRESS. HAS NO NEEDS AT THIS TIME
[2019-09-22] MEDS: INSULIN LISPRO 100 UNIT/1 ML 3ML VIAL SQ SCH ×4 (07:30→20:48)
[2019-09-22] MEDS: SODIUM CHLORIDE 0.9% 1000ML 1,000 ML IV SCH (07:41)
[2019-09-22] MEDS: SUCRALFATE 1 GM TAB PO SCH ×4 (07:41→20:44)
[2019-09-22] MEDS: GUAIFENESIN 600MG/DEXTROMETHORPHAN 30MG TABSR PO SCH ×2 (08:03→20:44)
[2019-09-22] MEDS: ASPIRIN 81 MG CHEW TAB PO SCH (08:03)
[2019-09-22] MEDS: FAMOTIDINE 20 MG TAB PO SCH (08:03)
[2019-09-22] MEDS: TAMSULOSIN HCL 0.4 MG CAP PO SCH (20:44)
[2019-09-22] MEDS: ATORVASTATIN 40 MG TAB PO SCH (20:44)
[2019-09-22] MEDS: ACETAMINOPHEN 325 MG TAB PO PRN (20:58)
[2019-09-22] MEDS: HYDROMORPHONE 1MG/1ML INJ IV PRN (20:58)
[2019-09-22] MEDS: ONDANSETRON HCL 4 MG ORAL DISINTEGRATING TAB PO PRN (20:58)
[2019-09-23] VITALS (7 sets, daily range): BP systolic 111–120; BP diastolic 65–75
[2019-09-23] MEDS: SODIUM CHLORIDE 0.9% 1000ML 1,000 ML IV SCH ×2 (00:31→09:08)
[2019-09-23] MEDS: PIPER-TAZ 3.375 GM 50 ML IV SCH ×2 (00:31→09:08)
[2019-09-23] MEDS: PANTOPRAZOL 40MG/SOD CHL 0.9% 50 ML IV SCH ×2 (03:58→09:08)
[2019-09-23 06:32] LABS: BASOPHILS % 0.4 % (0.0-1.0); EOSINOPHILS # (AUTO) 0.2 (0.0-0.4); EOSINOPHILS % 1.9 % (0.0-6.0); HEMATOCRIT 35.3 % (38.2-49.6); HEMOGLOBIN 10.2 g/dL (14.0-18.0); LYMPHOCYTES # (AUTO) 1.9 (1.0-3.2); LYMPHOCYTES % 17.1 % (18.0-39.1); MEAN CORPUSCULAR HEMOGLOBIN 21.6 pg (28-32); MEAN CORPUSCULAR HGB CONC 28.9 g/dL (31-35); MEAN CORPUSCULAR VOLUME 74.8 fL (81-99); MONOCYTES # (AUTO) 0.8 (0.2-0.8); MONOCYTES % 7.5 % (4.4-11.3); NEUTROPHILS # (AUTO) 8.1 (2.1-6.9); NEUTROPHILS % 72.5 % (38.7-80.0); PLATELET COUNT 477 x10e3/uL (140-360); RED BLOOD COUNT 4.72 x10e6/uL (4.3-5.7); RED CELL DISTRIBUTION WIDTH 22.1 % (11.7-14.4)
[2019-09-23 06:51] LABS: ANION GAP 8.8 mmol/L (8-16); BLOOD UREA NITROGEN 13 mg/dL (7-26); BUN/CREATININE RATIO 15 (6-25); CALCIUM 9.1 mg/dL (8.4-10.2); CARBON DIOXIDE 30 mmol/L (22-29); CHLORIDE 106 mmol/L (98-107); CREATININE, SERUM 0.85 mg/dL (0.72-1.25); EST GLOMERULAR FILTRATION RATE > 60 ML/MIN (60-); GLUCOSE 89 mg/dL (74-118); PHOSPHORUS 2.8 MG/DL (2.3-4.7); POTASSIUM 4.8 mmol/L (3.5-5.1); SODIUM 140 mmol/L (136-145)
[2019-09-23] MEDS: INSULIN LISPRO 100 UNIT/1 ML 3ML VIAL SQ SCH ×2 (07:29→12:16)
[2019-09-23] MEDS: SUCRALFATE 1 GM TAB PO SCH ×2 (07:32→12:14)
[2019-09-23 08:26] LABS: HYPOCHROMASIA SLIGHT; SCHISTOCYTES FEW
[2019-09-23 08:27] LABS: ANISOCYTOSIS SLIG; MICROCYTOSIS MODE; POIKILOCYTOSIS SLIGHT
[2019-09-23 08:28] LABS: PLATELET ESTIMATE ADEQUATE; PLATELET MORPHOLOGY COMMENT NORMAL
[2019-09-23] MEDS: ASPIRIN 81 MG CHEW TAB PO SCH (09:08)
[2019-09-23] MEDS: GUAIFENESIN 600MG/DEXTROMETHORPHAN 30MG TABSR PO SCH (09:08)
[2019-09-23] MEDS ORDERED: ASPIRIN CHEW81 MG PO (11:13)
[2019-09-23] MEDS ORDERED: FLOMAX0.4 MG PO (11:13)
[2019-09-23] MEDS ORDERED: Atorvastatin PO (11:13)
[2019-09-23] MEDS ORDERED: ACETAMINOPHEN325 M1 PO (11:13)
[2019-09-23] MEDS ORDERED: CARAFATE1 GM PO (11:13)
[2019-09-23] MEDS ORDERED: TYLENOL WITH C1 EACH PO (11:22)
--- NOTE | 2019-09-24 04:15 | Discharge Summary ---
CHIEF COMPLAINT: Abdominal pain. HISTORY OF PRESENT ILLNESS: Mr. Silva is a 59-year-old male, who admitted with complaints of pelvic, periumbilical, right upper quadrant, right lower quadrant abdominal soreness that began on September 11, 2019. He denied any nausea, vomiting, diarrhea, or fever or sick contacts. Upon admission, he has had a colonoscopy about six months prior to admission that was reportedly normal. He also admitted to urinary retention. CONSULTATIONS: For the case include Dr. Ralph Stroud, Dr. Lion Brooks, Dr. Eliazar David, Dr. Ye Cameron, Dr. Ajith Joseph. Per Dr. Stroud's consultation note, the patient's had claimed that he had two colonoscopies, which were reported essentially negative. He had a CT scan of the abdomen, which showed multiple lesions in the liver, the largest being 4.5 x 4 cm. The gallbladder was normal. Adrenals were reported essentially normal. Kidneys were normal; however, there was a circumferential tumor in the cecal base extending approximately 5.5 cm. The appendix measured 2.4 cm with periappendiceal inflammation. There were multiple enlarged pericecal lymph nodes, most of them measuring 2.5 cm. There were diverticula in the sigmoid colon with mural thickening, peritoneum showed small amount of perihepatic and pelvic ascites. Bone showed degenerative changes at L3-L4, L4-L5. Subsequently, the patient underwent surgery by Dr. David on September 12, 2019. Per Dr. David's consultation note dated 09/11/2019, assessment was appendicitis associated with a cecal mass, possible metastatic disease to the liver and the plan was for right colectomy. PAST MEDICAL HISTORY: Type 2 diabetes mellitus, hyperlipidemia, TIA, hepatitis B as a child. PAST SURGICAL HISTORY: Right shoulder surgery. FAMILY HISTORY: Diabetes mellitus in the mother and father. SOCIAL HISTORY: Noncontributory. ALLERGIES: NO KNOWN ALLERGIES. ADMITTING DIAGNOSES: 1. Acute appendicitis and cecal carcinoma. 2. Metastatic pericecal lymphadenopathy. 3. Urinary retention. 4. Past medical history of transient ischemic attack. 5. Hyperlipidemia. DISCHARGE DIAGNOSES: 1. Cecal cancer with metastasis, pericecal lymphadenopathy, liver metastasis, status post right hemicolectomy on September 12, 2019. 2. Acute appendicitis. 3. Diverticulosis coli. 4. Hypoproteinemia. 5. Hypoalbuminemia. 6. Controlled type 2 diabetes mellitus. 7. Urinary retention. 8. Iron deficiency anemia. 9. History of transient ischemic attack. 10. Ambulatory dysfunction. Per the CT of the abdomen and pelvis, which was done on 09/11/2019, circumferential tumor in the cecal base extended for approximately 5.5 cm. Impression was cecal carcinoma obstructing the appendiceal orifice resulting in acute appendicitis, metastatic pericecal lymphadenopathy and intrahepatic metastases, diverticulosis coli without evidence of acute diverticulitis. No bowel obstruction. Chest x-ray on September 11 showed a 1.7 cm right perihilar pulmonary nodule suspected. CT of the brain without contrast was done on September 14, 2019, which showed a few small focal juxtacortical hypodensities in the right superior cerebellum that may be due to age indeterminate ischemia associated old small left superior cerebellar cortical infarct, otherwise no acute intracranial abnormalities. Brain MRI done on September 14 showed a few old small subacute cortical infarcts in the bilateral superior cerebellar hemispheres, abnormal T2/FLAIR, hyperintensity within the intradural left vertebral artery may be due to sluggish and/or turbulent flow. No other acute intracranial abnormalities. Carotid doppler ultrasound was done on September 14, which showed evidence of carotid disease without significant carotid stenosis at the right bulb and bifurcation and ECA as well as the left bulb in left bifurcation. An echocardiogram was done on September 15, 2019, which showed an estimated ejection fraction of 65-70%, trace mitral regurgitation and tricuspid regurgitation. 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 Both superior cerebellar arteries are grossly patent. No other intracranial or cervical MRA abnormalities. On admission, WBCs 13.16, hemoglobin 10, hematocrit 34.3, platelets 323. Sodium 134, potassium 4.1, BUN 19, creatinine 1.0, eGFR greater than 60, total bilirubin 1.1, AST 30, ALT 26, alkaline phosphatase 126. Cardiac biomarkers were within normal limits. Lipase 9. Hemoglobin A1c was 5.4%. TSH 0.431. Carcinoembryonic antigen on September 13, 2019 was 5.5. Triglycerides 85, cholesterol 86, LDL 46, HDL 23. On admission, PT 13.9, INR 1.01, PTT 25.3. Urinalysis was essentially negative, slightly cloudy, 1+ ketones. Today the day of discharge, WBCs 11.21, hemoglobin 10.2, hematocrit 35.3, platelets 477,000. Sodium 140, potassium 4.8, chloride 106, CO2 of 30, BUN 13, creatinine 0.85, eGFR greater than 60, glucose 89, calcium 9.1, phosphorus 2.8, magnesium 2.0. Fingerstick blood glucose level 91. Fecal occult blood test was collected on September 19, September 20 and September 22, 2019 and all were positive. Per Dr. 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 At this time, his antiplatelets will be on hold because of bleeding. The patient understands the risk of having recurrent strokes because his Plavix is on hold because of his bleeding. Case was discussed with Dr. David today. Per Dr. David, okay to discharge the patient home and follow up with him in a week. 25 davina were counted in abdomen. No drainage noted. These can be removed prior to discharge. Patient instructed to follow up with PCP, which is Dr. Ana Reid in 1-2 weeks. The patient to especially follow up with Dr. David with Surgery, Dr. Joseph of Gastroenterology and Dr. Stroud with Oncology. Activity level as tolerated. Continue GI soft diet. No change in physical exam today. He was on Zosyn IV antibiotics during his stay. Per Dr. Cameron's note, the patient can follow up with him in about a month after discharging home. The patient continues to have dark stools. Both he and his are aware that he still has some bleeding. He has been tolerating his GI soft diet well. Currently, his pain is well controlled. Case was discussed with his last night. She has no questions. The patient denies any questions this morning. The patient states he will likely follow up with Dr. Stroud with Oncology as opposed to going to [facility] where he works, he is an employee there. He has been using a walker for ambulation. Dr. Stroud is still awaiting final pathology results. Dictated by Jesus Callahan, [employer] MD PHAN Tamez/MODL /[id number]
== END 2019-09-23 12:35 | disposition home or self-care (01) | DRG 330 ==
LOC: ER 12:14 → ERHOLD 15:19 → MED/SURG2 17:24 → MED/SURG 09-12 13:26
PROVIDERS: ADMIT Internal Medicine; ATTEND Internal Medicine
PROC: 0DTF0ZZ Resection of Right Large Intestine, Open Approach (ICD-10-PCS; principal; 2019-09-12 10:00)
PROC: 30233N1 Transfusion of Nonautologous Red Blood Cells into Peripheral Vein, Percutaneous Approach (ICD-10-PCS; 2019-09-17)
DX: C18.0 Malignant neoplasm of cecum (principal); C77.2 Secondary and unspecified malignant neoplasm of intra-abdominal lymph nodes; C78.7 Secondary malignant neoplasm of liver and intrahepatic bile duct; K35.20 Acute appendicitis with generalized peritonitis, without abscess; K92.2 Gastrointestinal hemorrhage, unspecified; K63.89 Other specified diseases of intestine; R16.0 Hepatomegaly, not elsewhere classified; E77.8 Other disorders of glycoprotein metabolism; E88.09 Other disorders of plasma-protein metabolism, not elsewhere classified; Z86.19 Personal history of other infectious and parasitic diseases; Z86.73 Personal history of transient ischemic attack (TIA), and cerebral infarction without residual deficits; Z88.5 Allergy status to narcotic agent; R33.9 Retention of urine, unspecified; Z83.3 Family history of diabetes mellitus; Z84.89 Family history of other specified conditions; E78.5 Hyperlipidemia, unspecified; K57.30 Diverticulosis of large intestine without perforation or abscess without bleeding; D50.9 Iron deficiency anemia, unspecified; E11.40 Type 2 diabetes mellitus with diabetic neuropathy, unspecified; H49.02 Third [oculomotor] nerve palsy, left eye; N40.0 Benign prostatic hyperplasia without lower urinary tract symptoms
CPT/HCPCS: 36415; 51700; 70450; 70544; 70547; 70551; 71045; 74177; 80048; 80051; 80053; 80061; 81001; 82270; 82378; 82550; 82553; 82948; 83036; 83690; 83735; 84100; 84443; 84484; 85025; 85610; 85730; 86850; 86900; 86920; 88307; 88309; 88342; 93005; 93306; 93880; 96365; 99284; J0330; J0461; J0694; J1100; J1170; J1200; J1750; J1885; J1940; J2001; J2250; J2270; J2405; J2543; J2710; J3010; J7030; J7040; J7050; P9016; Q0162; Q9967